=== PATIENT | female | born 1980 | race Caucasian/White ===

== ENCOUNTER 2016-10-21 19:06 | Emergency (ER) | payer BC ==
[2016-10-21 19:28] VITALS: BP 112/70
--- NOTE | 2016-10-21 20:22 | UC ---
Respiratory Complaint HPI - HPI Summary HPI Summary: The patient comes in today for: 1. Sore throat, headache, cough, sinus congestion, fever?, otalgia: Onset: 3 days ago. Palliative/Provocative: Nothing makes her symptoms better or worse. Quality: throat: scratchy. Headache: Frontal sinus Region: Throat, frontal sinus. Severity: 9/10 though she looks more like 5/10 Time: Constant. Associated symptoms: Rhinitis: Yellow. Upper tooth pain: None. Vomiting: None. Diarrhea: None. Abdominal pain: None. Chest pain: None. Dyspnea: Present, but no wheezing. Cough: yellow. * - History of Current Complaint Chief Complaint: UCGeneralIllness Stated Complaint: SINUSES Time Seen by Provider: 10/21/16 20:17 Hx Obtained From: Patient Hx Last Menstrual Period: HYSTERECTOMY 2007 - Allergies/Home Medications Allergies/Adverse Reactions: Allergies Allergy/AdvReac Type Severity Reaction Status Date / Time No Known Allergies Allergy Verified 10/21/16 19:28 Home Medications: Home Medications Pseudoephedrine TAB* [Sudafed TAB*] 60 mg PO Q6H PRN 10/21/16 [History Confirmed 10/21/16] predniSONE TAB* [Deltasone TAB*] 20 mg PO SEE INSTRUCTIONS 10/21/16 [History Confirmed 10/21/16] PMH/Surg Hx/FS Hx/Imm Hx Previously Healthy: No - "Pinched nerve in the neck on prednisone." Endocrine History Of: Denies: Diabetes, Thyroid Disease, Hyperthyroidism, Hypothyroidism, Dyslipidemia Cardiovascular History Of: Denies: Cardiac Disorders, Hypertension, Pacemaker/ICD, Myocardial Infarction , Congestive Heart Failure, Atrial Fibrillation, Deep Vein Thrombosis, Bleeding Disorders Respiratory History Of: Denies: COPD, Asthma, Bronchitis, Pneumonia, Pulmonary Embolism GI/ History Of: Denies: Gastroesophageal Reflux, Ulcer, Gastrointestinal Bleed, Gall Bladder Disease, Kidney Stones, Diverticulitis, Renal Disease, Urosepsis Neurological History Of: Denies: TIA, CVA, Dementia, Seizures, Migraine Psychological History Of: Denies: Anxiety, Depression, Bipolar Disorder, Schizophrenia, Post Traumatic Stress Disorder Cancer History Of: Denies: Lung Cancer, Colorectal Cancer, Breast Cancer, Prostate Cancer, Cervical Cancer Other History Of: Negative For: HIV, Hepatitis B, Hepatitis C, Anticoagulant Therapy - Surgical History Surgical History: Yes Surgery Procedure, Year, and Place: Gastric bypass 2013. hysterectomy 2007. lumbar herniated disc repair. C SECTION 2002 - Family History Known Family History: Positive: Cardiac Disease, Hypertension, Diabetes - Social History Occupation: Employed Full-time Lives: With Family Alcohol Use: Rare Alcohol Amount: FEW DRINKS/YR Substance Use Type: None Smoking Status (MU): Never Smoked Tobacco Have You Smoked in the Last Year: No - Immunization History Most Recent Influenza Vaccination: 06/04/16 Most Recent Tetanus Shot: 2013 Most Recent Pneumonia Vaccination: NEVER Review of Systems Constitutional: Negative Skin: Negative Eyes: Negative ENT: Sore Throat, Ear Ache, Nasal Discharge Respiratory: Cough Cardiovascular: Palpitations Gastrointestinal: Negative Genitourinary: Negative All Other Systems Reviewed And Are Negative: Yes Physical Exam Triage Information Reviewed: Yes Appearance: No Pain Distress, Well-Nourished, Ill-Appearing - She has good eye contact, but is slow moving. She will smile from time to time. Vital Signs: Initial Vital Signs Temp 98.3 F 10/21/16 19:22 Pulse 77 10/21/16 19:22 Resp 20 10/21/16 19:22 BP 112/70 10/21/16 19:22 Pulse Ox 100 10/21/16 19:22 Vital Signs Reviewed: Yes Eyes: Positive: Conjunctiva Clear. Negative: Discharge ENT: Positive: Hearing grossly normal, Other: - Sinus pressure elicits tenderness of the frontal and maxially sinuses.. Negative: Pharyngeal erythema , Nasal congestion, Nasal drainage, TM bulging, TM dull, TM red, Tonsillar swelling, Tonsillar exudate Dental: Negative: Gross Decay/Caries @, Dental Fracture @ Neck: Positive: Supple, Nontender, No Lymphadenopathy. Negative: Nuchal Rigidity Respiratory: Positive: Lungs clear, No respiratory distress, No accessory muscle use. Negative: Crackles, Wheezing Cardiovascular: Positive: RRR, No Murmur Abdomen Description: Positive: Nontender, No Organomegaly, Soft. Negative: Distended, Guarding Musculoskeletal: Positive: Strength Intact, ROM Intact, No Edema Neurological: Positive: Alert, Muscle Tone Normal Psychological: Positive: Normal Response To Family, Age Appropriate Behavior, Consolable Skin: Negative: rashes, breakdown UC Diagnostic Evaluation - Laboratory O2 Sat by Pulse Oximetry: 100 Respiratory Course/Dx - Differential Dx/Diagnosis Differential Diagnosis/HQI/PQRI: Asthma, Bronchitis, Sinusitis Provider Diagnoses: Sinusitis. Bronchitis. pharyngitis Discharge - Discharge Plan Condition: Stable Disposition: HOME Patient Education Materials: Upper Respiratory Infection (ED) Forms: *Work Release Referrals: Jacqueline Singh [Physician Polymer Materials Consultant] - 1 Week (Please see your primary care provider in about a week to see how well you are doing. If you get worse, please be seen sooner.)
== END 2016-10-21 20:46 | disposition home or self-care (01) ==
LOC: UCCORT 19:06
DX: J32.9 Chronic sinusitis, unspecified (principal); J40 Bronchitis, not specified as acute or chronic; J02.9 Acute pharyngitis, unspecified
CPT/HCPCS: 99212; G0463

== ENCOUNTER 2017-09-01 08:23 | Emergency (ER) | payer BC ==
--- OUTSIDE RECORDS SUMMARY | 2017-09-01 08:32 | XMS REPORT ---
:1980 External Reference #:[id number] Author Organization [employer] Address [address] [address] Phone [phone] Care Team Providers Name Role Phone Temi Calderon MD Primary Care Physician Unavailable Payers Type Date Identification Numbers Payment Provider Subscriber Commercial Effective: Policy Number: BS Jody De Los Santos 2011 [id number] Expires: 2012 PayID: [id number] [address] [address] [place] [address] [employer]ig[employer] Part B Expires: 2017 Policy Number: BS Jody De Los Santos [id number] PayID: [id number] [address] [address] B[place] [address] [employer] Part B Policy Number: [id number] DUSTIN De Los Santos PayID: [id number] [address] [address] [place] [address] Problems Date Description Provider Status Onset: 05/25/2014 Sjogren's syndrome João Garcia M.D. Active Onset: 05/25/2014 Immunologic João Garcia M.D. 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 Fulton De Los Santos to M.DGoyo use a space heater at work as it helps improve discomfort and function related to Raynaud's Vitamin B 12 / Active Lozenges 2500mcg 1 times a Unknown 0000 day Vitamin D3 / Active Capsules 1000Unit 1 by mouth Unknown High Potency 0000 every day Amoxicillin // Active Capsules 500mg take 1 Unknown 0000 capsule by mouth every 8 hours until finished Omeprazole / Active Capsules DR 20mg take 1 Unknown 0000 capsule by mouth once daily Iron / Active Tablets 325(65Fe) 1 by mouth Unknown 0000 mg every day Bactrim DS 04/23/ Hx Tablets 800-160mg 10tab 1 tab by R30.0 Meseret 2016 s mouth twice Cotton, a day for 5 M.D. days, may stop after 3 days if symptoms resolved Nitro-bid 11/22/ Hx Ointment 2% 30gm apply small I73.00 Donato 2015 - amount to Kirstin 04/22/ webs of Suzy 2017 digits as needed for attack of Raynaud's Cetraxal 11/15/ Hx Solution 0.2% 1unit 1 drop 380.51 Giuseppe 2015 - s twice a day RAE James 11/22/ to right 2016 ear x 7 days Fluticasone 08/28/ Hx Suspension 50mcg/Act 16gm 2 sprays 466.0 Kellee Propionate 2011 - Varn, N.P. 09/11/ nostril 2012 daily until better Benzonatate 08/28/ Hx Capsules 200mg 30cap one by 466.0 Kellee 2011 - s mouth three Varn, N.P. 09/11/ times daily 2012 as needed for cough Doxycycline 08/03/ Hx Capsules 100mg 20cap one tablet 709.9 Leslie Hyclate 2011 - s twice daily Kyle, 08/28/ until gone M.D. 2011 Omeprazole / Hx Capsules DR 10mg 30cap 1 po qd Unknown 0000 - s 2013 Biotin / Hx Tablets 5000mcg Unknown 0000 - 2015 Krill Oil / Hx Capsules 1000mg daily Unknown 0000 - 2015 Restasis / Hx Emulsion 0.05% 6unit one drops Unknown 0000 - s both eyes 11/15/ twice a day 2014 Refresh Plus / Hx Solution 0.5% apply 1-2 Unknown 0000 drops as needed Ibuprofen 00/ Hx Tablets 800mg as needed Unknown 0000 Vital Signs Date Vital Result Comment 08/27/2017 Height 59.5 inches 4'11.50" Weight 147.00 lb Heart Rate 76 /min BP Systolic 114 mmHg BP Diastolic 78 mmHg Respiratory Rate 16 /min Body Temperature 97.8 F BMI (Body Mass Index) 29.2 kg/m2 04/23/2017 Height 59.5 inches 4'11.50" Weight 143.00 lb w/o shoes Heart Rate 70 /min reg BP Systolic Sitting 112 mmHg Rue, reg cuff BP Diastolic Sitting 74 mmHg Rue, reg cuff Respiratory Rate 16 /min Body Temperature 97.2 F tympanic Pain Level 0 O2 % BldC Oximetry 96 % on Ra BMI (Body Mass Index) 28.4 kg/m2 11/23/2015 Height 59.5 inches 4'11.50" Weight 128.25 lb Heart Rate 68 /min BP Systolic Sitting 104 mmHg BP Diastolic Sitting 62 mmHg Pain Level 0 BMI (Body Mass Index) 25.5 kg/m2 11/15/2014 Height 59.5 inches 4'11.50" Weight 136.00 lb BP Systolic Sitting 98 mmHg BP Diastolic Sitting 66 mmHg BMI (Body Mass Index) 27.0 kg/m2 06/08/2014 Height 59.5 inches 4'11.50" Weight 152.25 lb Heart Rate 80 /min BP Systolic Sitting 104 mmHg BP Diastolic Sitting 68 mmHg Pain Level 3 BMI (Body Mass Index) 30.2 kg/m2 05/25/2014 Height 59.5 inches 4'11.50" Weight 153.50 lb Heart Rate 60 /min BP Systolic Sitting 124 mmHg BP Diastolic Sitting 76 mmHg Pain Level 4 BMI (Body Mass Index) 30.5 kg/m2 02/16/2014 Height 59 inches 4'11" Weight 165.00 lb BMI (Body Mass Index) 33.3 kg/m2 08/28/2012 Height 59.5 inches 4'11.50" Heart Rate 88 /min BP Systolic Sitting 128 mmHg BP Diastolic Sitting 80 mmHg Body Temperature 98.7 F Results Test Date Test Result H/L Range Note Urine Culture And 04/23/2017 Urine Culture SEE RESULT BELOW 1 Sensitivities Ua Routine 04/23/2017 Ua Specific Reinbeck 1.020 Ua PH 6 Ua Color yellow Ua Appera clear Ua WBC + Ua Protein trace Ua Glucose normal Ua Ketones negative Ua Bilirubin negative Ua Urobilinogen normal Ua Nitrite negative Ua Occult Blood negative Nicole (Antinuclear 11/24/2015 Nicole (Anti-Nuclear AB) Reflexed to FA Negative Antibodies) Screen Laboratory test 11/24/2015 C Reactive Protein 1.56 mg/L < 5.00 2 finding Complement C3 82 mg/dL 75 - 175 3 Complement C4 20 mg/dL 14 - 40 4 Anti Dna (Double Stranded Dna) Negative Negative 5 Dena Screen Negative Negative 6 Erythrocyte Sed Rate 15 mm/Hr High 0-14 7 Phospholipid Igm AB <4.0 MPL 8 Nicole Hep-2 11/24/2015 Nicole Pattern Centromere Negative Nicole Titer 1:5120 <1:80 Nicole Reviewed By MD Ila Melchor 9 Beta 2 Glycoprotein I Abs 11/24/2015 Beta 2 Glycoprotein IgG <4.0 U/mL 10 Beta 2 Glycoprotein IgM 16.9 U/mL 11 Free Thyroxine Index 11/24/2015 Thyroxine Binding 1.1 TBI 0.8 - 1.3 (Fti),Serum Panel Capacity, S Thyroxine, Total, S 7.4 g/dL 4.5 - 11.7 Free Thyroxine Index 6.7 g/dL 4.8 - 12.7 12 Neutrophil Cytoplasmic AB 11/24/2015 C-Anca Negative Negative P Anca Negative Negative Anca Reviewed By MD Ila Melchor 13 CBC Auto Diff 05/27/2014 White Blood Count 6.0 10^3/uL 4.8-10.8 Red Blood Count 4.31 10^6/uL 4.0-5.4 Hemoglobin 13.8 g/dL 12.0-16.0 Hematocrit 39 % 35-47 Mean Corpuscular Volume 91 fL 80-97 Mean Corpuscular Hemoglobin 32 pg High 27-31 Mean Corpuscular HGB Conc 35 g/dL 31-36 Red Cell Distribution Width 12 % 10.5-15 Platelet Count 227 10^3/uL 150-450 Mean Platelet Volume 8 um3 7.4-10.4 Abs Neutrophils 3.6 10^3/uL 1.5-7.7 Abs Lymphocytes 1.9 10^3/uL 1.0-4.8 Abs Monocytes 0.4 10^3/uL 0-0.8 Abs Eosinophils 0.1 10^3/uL 0-0.6 Abs Basophils 0 10^3/uL 0-0.2 Abs Nucleated RBC 0.01 10^3/uL Granulocyte % 60.3 % 38-83 Lymphocyte % 31.5 % 25-47 Monocyte % 6.4 % 1-9 Eosinophil % 1.2 % 0-6 Basophil % 0.6 % 0-2 Nucleated Red Blood Cells % 0.2 Comp Metabolic Panel 05/27/2014 Sodium 138 mmol/L 133-145 Potassium 3.8 mmol/L 3.7-5.6 Chloride 103 mmol/L 101-111 Co2 Carbon Dioxide 30 mmol/L 22-32 Anion Gap 5 mmol/L 2-11 Glucose 84 mg/dL 70-100 Blood Urea Nitrogen 12 mg/dL 6-24 Creatinine 0.56 mg/dL 0.51-0.95 BUN/Creatinine Ratio 21.4 High 8-20 Calcium 8.9 mg/dL 8.6-10.3 Total Protein 6.9 g/dL 6.4-8.9 Albumin 4.4 g/dL 3.2-5.2 Globulin 2.5 g/dL 2-4 Albumin/Globulin Ratio 1.8 1-3 Total Bilirubin 0.60 mg/dL 0.2-1.0 Alkaline Phosphatase 44 U/L 34-104 Alt 10 U/L 7-52 Ast 12 U/L Low 13-39 Egfr Non- 124.7 >60 Egfr 160.3 >60 14 Laboratory test finding 05/27/2014 Dena Screen Negative Negative 15 Erythrocyte Sed Rate 25 mm/Hr High 0-14 Cyclic Citrullinated Pept IgG <15.6 U 16 Neutrophil Cytoplasmic AB 05/27/2014 C-Anca Negative Negative P Anca Negative Negative Anca Reviewed By MD Ila Melchor 17 C-Anca Negative Negative P Anca Negative Negative Anca Reviewed By MD Ila Melchor 18 Laboratory test finding 05/27/2014 Rheumatoid Factor 31 IU/mL <15 19 C Reactive Protein 3.97 mg/L < 5.00 20 Nicole (Anti-Nuclear AB) Screen Reflexed to FA Negative Anti Double Stranded Dna Negative Negative Uric Acid 5.9 mg/dL 2.3-6.6 Hla B27 05/27/2014 Hla B27 Negative 21 Hla B27 Interp See Comment 22 Hepatitis Acute Panel 05/27/2014 Hepatitis B Surface Nonreactive Nonreactive Antigen Hepatitis B Core IgM Nonreactive Nonreactive Hepatitis A AB IgM Nonreactive Nonreactive Hepatitis C Antibody Nonreactive Nonreactive Nicole Hep-2 05/27/2014 Nicole Pattern Centromere Negative Nicole Titer 1:5120 <1:80 Nicole Reviewed By MD Mike Loera <SEE NOTE> 23 Laboratory test finding 08/28/2012 Rapid Influenza A B Antigen (SEE NOTE) 24 1 SEE RESULT BELOW Name: ENEIDA DE LOS SANTOS : [address]: Bianca Saini NP Acct: [id number] Unit: [id number] AGE: 37 Location: [facility] Re04/23/17 SEX: F Status: REG REF SPEC: [id number] JEN: 04/23/17-1430 [facility] [address]: Bianca Saini NP REQ: [id number] RECD: 04/23/17 STATUS: COMP _ SOURCE: URINE SPDESC: ORDERED: Urine Culture COMMENTS: [id number] Urine Source: Random Procedure Result Reported Site Urine Culture Final 04/25/17- 0840 ML Organism 1 ESCHERICHIA COLI [place] Count >100,000 (Many) CFU/ML 1. ESCHERICHIA COLI M.I.C. RX --------- ------ Ampicillin <=2 S Cefazolin <=4 S Cefepime <=1 S Ceftriaxone <=1 S Ciprofloxacin <=0.25 S Gentamicin <=1 S Levofloxacin <=0.12 S Meropenem <=0.25 S Nitrofurantoin 32 S Tetracycline <=1 S Pipercillin/Tazobactam <=4 S Trimethoprim/Sulfamethoxazole <=20 S Amoxicillin/Clavulanic Acid <=2 S Aztreonam <=1 S Contact the Microbiology Department for any additional antibiotic reporting. * ML - MAIN LAB ([facility]) . END OF REPORT * ML=Testing performed at Main Lab DEPARTMENT OF PATHOLOGY, [address] [place] [address] Mike Hernandez M.D. Director [facility] # [id number] 2 Acute inflammation: >10.00 3 Test Performed by: [address] [address] Requisition Approver: Eduardo Anguiano II, M.D., Ph.D. 4 Test Performed by: [place] [address] Requisition Approver: Eduardo Anguiano II, M.D., Ph.D. 5 this week please 6 The above DENA screen is designed for the detection of antibodies to extractable nuclear antigen (DENA) in human serum. It is a combination test for the detection of antibodies to BANDER OPERATOR, Sm, SS-A (Ro), and SS-B (La) nuclear antigens. 7 this week please 8 REFERENCE VALUE <10.0 (Negative) Test Performed by: [place] [address] Requisition Approver: Eduardo Anguiano II, M.D., Ph.D. 9 Ila Melchor 10 REFERENCE VALUE <10.0 (Negative) 11 Interpretation: Positive (>=15.0) REFERENCE VALUE <10.0 (Negative) Test Performed by: [place] [address] Requisition Approver: Eduardo Anguiano II, M.D., Ph.D. 12 Test Performed by: [place] [address] Requisition Approver: Eduardo Anguiano II, M.D., Ph.D. 13 Ila Melchor 14 Because ethnic data is not always readily available, this report includes an eGFR for both -Americans and non- Americans. The National Kidney Disease Education Program (NKDEP) does not endorse the use of the MDRD equation for patients that are not between the ages of 18 and 70, are , have extremes of body size, muscle mass, or nutritional status, or are non- or non-. According to the National Kidney Foundation, irrespective of diagnosis, the stage of the disease is based on the level of kidney function: Stage Description GFR(mL/min/1.73 m(2)) 1 Kidney damage with normal or decreased GFR 90 2 Kidney damage with mild decrease in GFR 60-89 3 Moderate decrease in GFR 30-59 4 Severe decrease in GFR 15-29 5 Kidney failure <15 (or dialysis) 15 The above DENA screen is designed for the detection of antibodies to extractable nuclear antigen (DENA) in human serum. It is a combination test for the detection of antibodies to BANDER OPERATOR, Sm, SS-A (Ro), and SS-B (La) nuclear antigens. 16 -- REFERENCE VALUE -- <20.0 (Negative) Test Performed by: [place] [address] Requisition Approver: Michael Dumont III, M.D. 17 Ila Melchor 18 Ila Melchor 19 Test Performed by: [place] [address] Requisition Approver: Michael Dumont III, M.D. 20 Acute inflammation: >10.00 21 -- REFERENCE VALUE -- Not Applicable 22 RESULT: HLA-B27 antigen was not detected. Method: Flow Cytometry Performing Laboratory CLIA# [id number] Test Performed by: [place] [address] Requisition Approver: Michael Dumont III, M.D. 23 Mike Hernandez 24 RUN DATE: 08/28/12 [facility] LAB LIVE PAGE 1 RUN TIME: [address] [place] [address] Specimen Inquiry Name: ENEIDA DE LOS SANTOS : [address]: Kellee Correia Acct: [id number] Unit: [id number] AGE: 32 Location: [facility] Re08/28/12 SEX: F Status: REG REF SPEC: [id number] JEN: 08/28/12-[address] [facility] [address]: Kellee Correia REQ: [id number] RECD: 08/28/12 STATUS: COMP _ SOURCE: [facility]: ORDERED: Rapid Flu A B QUERIES: [employer] Number [id number] Procedure Result Verified Site Rapid Influenza A B Antigen Final 08/28/12- 1241 ML Influenza A Antigen Negative by Enzyme Immunoassay Influenza B Antigen Negative by Enzyme Immunoassay Cell culture testing can be performed to confirm negative test results and to assist in detecting other viruses that can produce similar clinical symptoms. Please notify Microbiology Lab if further testing is desired. END OF REPORT * ML=Testing performed at Main Lab DEPARTMENT OF PATHOLOGY, [address] [place] [address] Mike Hernandez M.D. Director [facility] Permit #[id number] Procedures Date CPT Code Description Status 10/20/2013 79401 EKG, Interpretation Only Completed 02/21/2013 01252 Polysomnography Sleep Staging 4+ Parameters W/Cpap Completed 02/02/2013 60029 Polysomnography Sleep Staging 4+ Parameters Completed Encounters Type Date Location Provider CPT E/M Dx Office Visit 04/23/2017 1:00p [facility] Internal Medicine KRISHAN Patel [address] R30.0 - [address] N39.0 Office Visit 11/23/2015 10:00a [facility]ology Services Donato Fulton [address]608 M35.01 Of [facility] Suzy I73.00 R53.83 R76.0 Office Visit 11/15/2014 9:30a [facility] Internal Medicine - Giuseppe James, RAE [address] 959.09 Office Visit 06/08/2014 1:20p Rheumatology Services João Garcia M.D. 64457 710.2 Of [facility] 795.79 Office Visit 05/25/2014 2:00p Rheumatology Services João Garcia M.D. 06930 710.2 Of [facility] 795.79 Office Visit 11/25/2012 1:08p Adama Galan, [address]10 786.09 [facility] Suzy 780.79 Office Visit 08/28/2012 10:20a [facility] Internal Medicine Kellee Correia, N.P. 14888 466.0 - [place] Plan of Care Future Appointment(s):09/18/2017 9:00 am - Jeffry Walton MD, FACS at [facility]09/09/2017 12:15 pm - MICHAELA Schuster at [facility]09/09/2017 12:15 pm - Jeffry Walton MD, FACS at [facility]08/27/2017 - Jeffry Walton MD, FACSR10.12 Left upper quadrant painComments:get records including labs from PCP office.Recommendations: Diagnostic [id number] Bariatric surgery status
--- OUTSIDE RECORDS SUMMARY | 2017-09-01 08:33 | XMS REPORT ---
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 Unavailable Payers Type Date Identification Numbers Payment Provider Subscriber Health Maintenance Policy Number: [facility] Eneida Garcia [facility] ([facility]) [id number] PayID: [id number] [address] [place] [phone] Medigap Part B Effective: 06/08/2011 Policy Number: [facility] Eneida Garcia [id number] Expires: 08/07/2017 PayID: [id number] [address] [id number] [address] [place] [phone] Workers Compensation Onset: 09/21/2014 Policy Number: State Mamie Garcia [id number] Insurance PayID: [id number] [address] [place] [address] Problems Date Description Provider Status Onset: 02/27/2017 Anxiety state Temi Calderon MD Active Onset: 05/22/2017 Keratoconjunctivitis sicca, in Temi Calderon MD Active Sjogren's syndrome Onset: 02/25/2012 Morbid obesity Alessandra Conklin, Resolved 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: 10/17/2016 Family History Date Family Member(s) Problem(s) Comments Father Obesity Father due to AAA () - age 40 Father Hypertension Mother Obesity Mother Hypercholesterolemia Mother Thyroid Disease First Brother Obesity Social History Type Date Description Comments Education Higest level completed, Bachelor's Degree Marital Status Single Lives With Daughter 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 [facility] Hand Dominance RIGHT-handed ETOH Use Rarely consumes alcohol Smoking Patient has never smoked Allergies, Adverse Reactions, Alerts Date Description Reaction Status Severity Comments 09/28/2014 NKDA active Medications Medication Date Status Form Strength Qnty SIG Indications Ordering Provider Omeprazole 08/[address] 20mg 14cap 1 by mouth R10.12 Manny s every day DO Chris Vitamin B-12 02/27 Active Tablets 1000mcg 1 by mouth D51.9 Kvng, every day MD Temi Ferrous Sulfate 02/27 Active Tablets 325mg 1 by mouth D50.9 Kvng, every day MD Temi Tylenol 8 Hour 02/04 Active Tablets ER 650mg 1 tabs Kvng Arthritis Pain twice MD Temi daily for arthritis pain Vitamin D-1000 09/28 Active Tablets 1000Unit 90tab 1 by mouth Manny, Maximum Strength /2014 s every day DO Chris Escitalopram 02/10 Hx Tablets 10mg 30tab 1 by mouth F41.1 Kvng, s every day MD Temi - 05/20 Duloxetine HCL 02/[address] 30mg 53cap 1 by mouth F41.9 Part s every day MD Temi - x 1 week 05/20 then increase dose to 2 po daily Prednisone 10/17 Hx Tablets 10mg 21tab 6 pills by M54.2 s mouth x 1 MD Temi - dose 10/23 today then decrease dose by 1 pill daily until gone. Tizanidine HCL 08/06 Hx Tablets 4mg 90tab take one M54.2 s tablet by MD Temi - mouth at 02/04 bedtime as needed for pain Meloxicam 08/06 Hx Tablets 7.5mg 30tab 1 by mouth M54.2 Kvng, s every day MD Temi - with food 02/04 x 2 weeks, then as needed Sertraline HCL 12/18 Hx Tablets 25mg 14tab 1 po daily F33.1 Bryant, s Chris - DO 08/06 Sertraline HCL 11/29 Hx Tablets 50mg 30tab 1/2 po Manny, s daily x 6 Mala Perez days, then DO 12/18 increase to 1 po Cyclobenzaprine 05/08 Hx Tablets 5mg 60tab 1/2-2 by 847.0 Digiovann HCL /2014 s mouth a, - every 8 Alessandra, 11/29 hours as 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 needed for pain Ciprodex 11/15 Hx Suspension 0.3-0.1% 1unit 5 drops s twice a - day x 10 12/06 days RIGHT /2016 ear Vitamin B-12 09/28 Hx Tablets 500mcg 2 by mouth Manny, every day Chris, - DO 11/13 Biotin 5000 09/28 Hx Capsules 5mg take 2 by Manny, mouth Chris, - every day DO 11/13 Amitriptyline HCL 09/28 Hx Tablets 10mg 60tab 1-2 po qhs 850.9 Manny, s Chris, - DO 10/19 Meclizine HCL 07/01 Hx Tablets 12.5mg 50tab 1-2 by Manny, s mouth Chris, - three DO 05/08 times a day as needed for dizziness Restasis Hx Emulsion 0.05% 1 drop Unknown / both eyes - twice a /2014 Alrex Hx Suspension 0.2% Unknown / - 05/08 Vitamin B-12 Hx Tablets Sub 2500mcg 2 by mouth Unknown / every day - 02/27 Biotin Hx Tablets 300mcg Unknown /0000 - 12/06 Medications Administered in Office Medication Date Status Form Strength Qnty SIG Indications Ordering Provider Depo Medrol 40 Administered Injection MG James Bran MD Depo Medrol 40 Administered Injection MG James Bran MD Immunizations CPT Code Status Date Vaccine Lot # [id number] Given 02/25/2012 Tdap (Adacel) Ages 7 And Above Only Vital Signs Date Vital Result Comment 08/21/2017 Body Temperature 97.6 F Weight 148.00 lb Heart Rate 72 /min BP Systolic 132 mmHg BP Diastolic 60 mmHg Respiratory Rate 18 /min Height 61 inches 5'1"02/04/17 BMI (Body Mass Index) 28.0 kg/m2 08/19/2017 Body Temperature 98.4 F Weight 147.00 lb Heart Rate 70 /min BP Systolic 126 mmHg BP Diastolic 70 mmHg Respiratory Rate 18 /min Height 61 inches 5'1"02/04/17 BMI (Body Mass Index) 27.8 kg/m2 08/05/2017 Weight 150.00 lb Heart Rate 76 /min BP Systolic 126 mmHg BP Diastolic 74 mmHg Respiratory Rate 14 /min Height 61 inches 5'1"02/04/17 BMI (Body Mass Index) 28.3 kg/m2 02/27/2017 Weight 142.00 lb Heart Rate 67 /min BP Systolic 118 mmHg BP Diastolic 78 mmHg Respiratory Rate 16 /min Height 61 inches 5'1"02/04/17 BMI (Body Mass Index) 26.8 kg/m2 02/04/2017 Weight 140.00 lb Heart Rate 68 /min BP Systolic 110 mmHg BP Diastolic 70 mmHg Respiratory Rate 18 /min Height 61 inches 5'1"02/04/17 BMI (Body Mass Index) 26.4 kg/m2 10/23/2016 Body Temperature 101.0 F Weight 141.00 lb Heart Rate 90 /min BP Systolic 126 mmHg BP Diastolic 82 mmHg Respiratory Rate 24 /min Height 61 inches 5'1" O2 % BldC Oximetry 99 % Ra BMI (Body Mass Index) 26.6 kg/m2 10/17/2016 Weight 137.00 lb Heart Rate 76 /min BP Systolic 122 mmHg BP Diastolic 70 mmHg Respiratory Rate 18 /min Height 59.25 inches 4'11.251 10/17/18 BMI (Body Mass Index) 27.4 kg/m2 08/06/2016 Weight 134.00 lb Heart Rate 76 /min BP Systolic 110 mmHg BP Diastolic 60 mmHg Respiratory Rate 18 /min Height 59.25 inches 4'11.25" BMI (Body Mass Index) 26.8 kg/m2 01/06/2016 Weight 128.00 lb Heart Rate 68 /min BP Systolic 98 mmHg BP Diastolic 66 mmHg Respiratory Rate 16 /min Height 59.25 inches 4'11.25" BMI (Body Mass Index) 25.6 kg/m2 12/19/2015 Body Temperature 97.8 F Weight 127.00 lb Heart Rate 70 /min BP Systolic 112 mmHg BP Diastolic 78 mmHg Respiratory Rate 18 /min Height 59.25 inches 4'11.25" O2 % BldC Oximetry 100 % BMI (Body Mass Index) 25.4 kg/m2 12/07/2015 Body Temperature 98.4 F Weight 128.00 lb Heart Rate 73 /min BP Systolic 110 mmHg BP Diastolic 72 mmHg Respiratory Rate 18 /min Height 59.25 inches 4'11.25" O2 % BldC Oximetry 99 % BMI (Body Mass Index) 25.6 kg/m2 11/14/2015 Weight 127.00 lb Heart Rate 68 /min BP Systolic 122 mmHg BP Diastolic 70 mmHg Respiratory Rate 18 /min Height 59.25 inches 4'11.25" BMI (Body Mass Index) 25.4 kg/m2 05/08/2015 Weight 134.00 lb Heart Rate 80 /min BP Systolic 118 mmHg BP Diastolic 68 mmHg Respiratory Rate 17 /min Height 59 inches 4'11" BMI (Body Mass Index) 27.1 kg/m2 10/19/2014 Weight 139.00 lb Heart Rate 60 /min BP Systolic 112 mmHg BP Diastolic 60 mmHg Respiratory Rate 18 /min Height 59 inches 4'11" BMI (Body Mass Index) 28.1 kg/m2 09/28/2014 Weight 145.00 lb Heart Rate 80 /min BP Systolic 114 mmHg BP Diastolic 64 mmHg Respiratory Rate 16 /min Height 59 inches 4'11" BMI (Body Mass Index) 29.3 kg/m2 07/01/2014 Body Temperature 98.1 F Weight 150.00 lb Heart Rate 76 /min Respiratory Rate 18 /min Height 59 inches 4'11" 05/12/2014 Weight 154.00 lb BP Systolic 120 mmHg BP Diastolic 60 mmHg Height 59 inches 4'11" 03/04/2013 Weight 213.00 lb Heart Rate 78 /min BP Systolic 134 mmHg BP Diastolic 74 mmHg Respiratory Rate 18 /min 11/05/2012 Weight 212.00 lb Heart Rate 88 /min BP Systolic 134 mmHg BP Diastolic 88 mmHg Respiratory Rate 18 /min Results Test Date Test Result H/L Range Note Laboratory test 08/21/2017 Urine Culture <pending> finding Laboratory test 08/19/2017 Urine Culture Microbiology res 1 finding <SEE NOTE> Laboratory test 08/19/2017 Cytology Fluid SEE NOTE 2 finding Specimen CBC With Auto Diff 08/19/2017 WBC 5.5 K/uL 4.1-11.0 RBC 4.49 M/uL 4.00-5.40 Hemoglobin 14.4 gm/dL 12.0-16.0 Hematocrit 41.5 % 36.0-47.0 MCV 92.5 fL 80.0-97.0 MCH 32.0 pg 27.0-32.0 MCHC 34.5 g/dL 32.0-36.0 RDW 12.8 % 11.5-14.5 PLT Count 194 K/ul 140-400 MPV 8.1 FL 7.1-10.7 Neutrophil 65.3 % 35.0-75.0 Lymphocyte 26.0 % 16.0-52.0 Monocyte 5.6 % 2.0-10.0 Eosinophil 2.3 % 0.0-5.0 Basophil 0.8 % 0.0-4.0 Abs Neutrophils 3.6 K/uL 2.1-8.0 Abs Lymphocytes 1.4 K/uL 0.8-5.5 Abs Monocytes 0.3 K/uL 0.1-1.0 Abs Eosinophils 0.1 K/uL 0.0-0.5 Abs Basophils 0.0 K/uL 0.0-0.3 Laboratory test finding 08/19/2017 Lipase 12 U/L 11-82 Hepatic Panel (LFT) 08/19/2017 Total Protein 6.5 g/dL 6.0-8.0 Albumin 4.4 g/dL 3.6-4.9 Total Bilirubin 0.7 mg/dL 0.1-1.3 Direct Bilirubin 0.1 mg/dL 0.0-0.4 Alkaline Phosphatase 44 U/L 24-140 Alt 8 U/L 3-42 Ast 11 U/L 8-42 Basic (BMP) 08/19/2017 Sodium 140 mmol/L 135-146 3 Potassium 4.2 mmol/L 3.5-5.2 Chloride# 104 mmol/L 97-110 4 Carbon Dioxide 31 mmol/L 24-34 Glucose 88 mg/dL 70-105 Creatinine 0.5 mg/dL 0.5-1.4 Calcium 8.9 mg/dL 8.5-10.2 Non Melissa Egfr >60 >60 5 Melissa Egfr >60 >60 6 Anion Gap 5 mmol/L Low 7-16 7 BUN 12 mg/dL 6-26 Laboratory test finding 08/19/2017 Vitamin B12 674 pg/mL 180-914 Laboratory test finding 02/20/2017 TSH 3.5 CBC With Auto Diff 11/14/2015 WBC 5.1 K/uL 4.1-11.0 RBC 4.38 M/uL 4.00-5.40 Hemoglobin 13.6 gm/dL 12.0-16.0 Hematocrit 40.4 % 36.0-47.0 MCV 92.3 fL 80.0-97.0 MCH 31.1 pg 27.0-32.0 MCHC 33.7 g/dL 32.0-36.0 RDW 13.3 % 11.5-14.5 PLT Count 216 K/ul 140-400 Neutrophil 65.7 % 35.0-75.0 Lymphocyte 25.9 % 16.0-52.0 Monocyte 6.1 % 2.0-10.0 Eosinophil 1.5 % 0.0-5.0 Basophil 0.8 % 0.0-4.0 Abs Neutrophils 3.3 K/uL 2.1-8.0 Abs Lymphocytes 1.3 K/uL 0.8-5.5 Abmon 0.3 K/uL 0.1-1.0 Abs Eosinophils 0.1 K/uL 0.0-0.5 Abs Basophils 0.0 K/uL 0.0-0.3 Comprehensive Metabolic (CMP) 11/14/2015 Sodium 140 mmol/L 134-142 Potassium 4.0 mmol/L 3.5-5.2 Chloride 103 mmol/L 97-109 Carbon Dioxide 33 mmol/L 24-34 Glucose 84 mg/dL 70-105 BUN 19 mg/dL 6-26 Creatinine 0.5 mg/dL 0.5-1.4 Calcium 8.8 mg/dL 8.5-10.2 Total Protein 6.7 g/dL 6.0-8.0 Albumin 4.2 g/dL 3.6-4.9 Globulin 2.5 g/dL 2.0-3.5 A/G Ratio 1.7 Ratio 1.0-2.2 Total Bilirubin 0.6 mg/dL 0.1-1.3 Alkaline Phosphatase 43 U/L 24-140 Alt 9 U/L 3-42 Ast 10 U/L 8-42 Anion Gap 8 mmol/L 6-14 Melissa Egfr >60 >60 8 Non Melissa Egfr >60 >60 9 Laboratory test finding 11/14/2015 Ferritin 45.5 ng/ml 11.0-306.0 Vitamin B12 >1500 pg/mL High 180-914 Vit D,25 Hydroxy 43 ng/mL 31-100 Esr 10 mm/hr 0-20 Jordan Screen Pos Neg 10 TSH 1.62 uIU/mL 0.35-4.94 Laboratory test finding 11/14/2015 Scleroderma Igg AB NEGATIVE INDEX (Neg ) 11 1 Microbiology results SOURCE Random urine FINAL RESULT 25,000 CFU/ML Mixed urogenital karlo consistent with contamination. Request fresh specimen if indicated. 2 [facility]. [address] [place] [id number] CYTOLOGY REPORT Source of Specimen(s): A: LBP Urine, Voided Clinical Diagnosis and History: R31.29 Gross Description LBP Urine, Voided: 80 cc clear yellow fluid. Final Diagnosis Specimen Adequacy Satisfactory Final Diagnosis VOIDED URINE: NEGATIVE FOR HIGH-GRADE UROTHELIAL CARCINOMA The specimen contains a few urothelial cells, some background squamous cells and acute inflammatory cells. As applicable, positive and negative controls for all immunohistochemical and/or special stains were reviewed and considered appropriate. Reported: 08/20/2017 14:55 Electronically Signed Out By Bolivar Bernardo MD [facility] Supervisor [place]: Cordelia SHI([facility]) [facility] ICD Code: R31.2 Unless otherwise specified, testing performed by [facility] [address] [address] 3 Updated reference range on new analyzer 4 Updated reference range on new analyzer 5 Concerning GFR Guidelines: Normal function or mild renal disease, if clinically at risk: >/=60 mL/min Moderately decreased: 30-59 Severely decreased: 15-29 Renal failure: <15 Glomerular Filtration Rate (GFR) is estimated based on the MDRD equation, which assumes a steady state for creatinine as recommended by the National Kidney Disease Education Program in conjunction with the National Institutes of Health and the National Kidney Foundation. Clinical conditions in which it may be necessary to measure GFR by using clearance methods include extremes of age and body size, severe malnutrition or obesity, diseases of skeletal muscle, paraplegia or quadriplegia, vegetarian diet, rapidly changing kidney function, and calculation of the dose of potentially toxic drugs that are excreted by the kidneys. 6 Concerning GFR Guidelines for Americans: Normal function or mild renal disease, if clinically at risk: >/=60 mL/min Moderately decreased: 30-59 Severely decreased: 15-29 Renal failure: <15 7 Updated reference range on new analyzer 8 Concerning GFR Guidelines for Americans: Normal function or mild renal disease, if clinically at risk: >/=60 mL/min Moderately decreased: 30-59 Severely decreased: 15-29 Renal failure: <15 9 Concerning GFR Guidelines: Normal function or mild renal disease, if clinically at risk: >/=60 mL/min Moderately decreased: 30-59 Severely decreased: 15-29 Renal failure: <15 Glomerular Filtration Rate (GFR) is estimated based on the MDRD equation, which assumes a steady state for creatinine as recommended by the National Kidney Disease Education Program in conjunction with the National Institutes of Health and the National Kidney Foundation. Clinical conditions in which it may be necessary to measure GFR by using clearance methods include extremes of age and body size, severe malnutrition or obesity, diseases of skeletal muscle, paraplegia or quadriplegia, vegetarian diet, rapidly changing kidney function, and calculation of the dose of potentially toxic drugs that are excreted by the kidneys. 10 Screen for JORDAN is positive. Please triage the lab within 5 days if you would like additional testing. 11 Unless otherwise specified, testing performed by [email or web address] [address] [place] [address] Procedures Date CPT Code Description Status Comment 08/05/2017 23002 Admin Of Inj (Therapeutic Completed Phrophylactic Or Diagnostic Subq Inj 08/05/2017 01330 Admin Of Inj (Therapeutic Completed Phrophylactic Or Diagnostic Subq Inj 10/23/2016 94024 Measure Blood Oxygen Level Single Completed Determination 10/17/2016 57645 X-Ray Spine Cervical, 6 Or More Completed Views 10/17/2016 49659 X-Ray Spine Cervical, 4 Or 5 Views Completed 12/19/2015 93299 Measure Blood Oxygen Level Single Completed Determination 12/19/2015 13978 Electrocardiogram Complete Completed 12/07/2015 05261 Measure Blood Oxygen Level Single Completed Determination 05/08/2015 85669 X-Ray Spine Cervical, 4 Or 5 Views Completed 05/08/2015 00987 Remove Impacted Cerumen Requiring Completed Instrumentation 09/28/2014 89412 Visual Screening Test Completed 09/28/2014 19631 Visual Screening Test Completed 02/25/2012 15340 Visual Screening Test Completed 02/25/2012 49326 Screening Hearing Test Completed 08/27/2010 56246 Colonoscopy Flexible Diagnostic Completed Dr. Bazzi - Normal Encounters Type Date Location Provider CPT E/M Dx Office Visit 08/19/2017 11:00a [facility] [address] R10.12 R31.29 Office Visit 08/05/2017 4:15p [facility] [address] M70.62 M70.61 M54.5 Office Visit 02/27/2017 4:15p [facility] [place] [address] F41.9 G47.33 D51.9 D50.9 Office Visit 02/04/2017 2:30p [facility] [address] F41.9 G47.00 Z98.84 I73.00 M70.60 Office Visit 10/23/2016 1:00p [facility] [place] [address] J06.9 Office Visit 10/17/2016 10:15a [facility] [address] M54.2 Office Visit 08/06/2016 2:30p [facility] [place] [address] M54.2 M54.12 Office Visit 01/06/2016 9:00a [facility] [place] [address] F33.1 H83.09 Office Visit 12/19/2015 1:00p [facility] [place] [address] R07.89 F33.1 Office Visit 12/07/2015 11:00a [facility] [place] [address] J01.90 F43.0 Office Visit 11/14/2015 1:45p [facility] [place] [address] I73.00 Z98.84 R53.83 K59.00 Office Visit 05/08/2015 2:45p [facility] [place] [address] 784.0 847.0 380.4 Office Visit 10/19/2014 2:30p [facility] [place] [address] 850.9 850.9 Office Visit 09/28/2014 2:30p [facility] [place] [address] 850.9 850.9 Plan of Care 08/21/2017 - Tangela Sanchez, PAR30.0 DysuriaComments:Will send urine for repeat culture todayWill also check affirm/g/cWith hematuria, consider referral to urologyFollow up:PrnR31.29 Other microscopic hematuriaComments:Plan as above
--- OUTSIDE RECORDS SUMMARY | 2017-09-01 08:33 | XMS REPORT ---
:1980 External Reference #:[id number] Author Organization [facility] Address [address] [address] Phone [phone] Care Team Providers Name Role Phone Temi Calderon MD Care Team Information [place] Unavailable Payers Type Date Identification Numbers Payment Provider Subscriber Health Maintenance Policy Number: [facility] Eneida Garcia [facility] ([facility]) [id number] PayID: [id number] [address] [place] [phone] Medigap Part B Effective: 06/08/2011 Policy Number: [facility] Eneida Garcia [id number] Expires: 08/07/2017 PayID: [id number] [address] [address] [address] [phone] Workers Compensation Onset: 09/21/2014 Policy Number: State Mamie Garcia [id number] Insurance PayID: [id number] [address] [place] [address] Problems Date Description Provider Status Onset: 02/27/2017 Anxiety state Temi Calderon MD Active Onset: 05/22/2017 Keratoconjunctivitis sicca, in Temi Calderon MD Active Sjogren's syndrome Onset: 02/25/2012 Morbid obesity Alessandra Conklin, Resolved 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: 10/17/2016 Family History Date Family Member(s) Problem(s) Comments Father Obesity Father due to AAA () - age 40 Father Hypertension Mother Obesity Mother Hypercholesterolemia Mother Thyroid Disease First Brother Obesity Social History Type Date Description Comments Education Higest level completed, Bachelor's Degree Marital Status Single Lives With Daughter 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[facility] [employer] Hand Dominance RIGHT-handed ETOH Use Rarely consumes [...] - every 8 Alessandra, 11/29 hours as 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 needed for pain Ciprodex 11/15 Hx Suspension [...] CPT Code Status Date Vaccine Lot # [id number] Given 02/25/2012 Tdap (Adacel) Ages 7 And Above Only Vital Signs Date Vital Result Comment 08/19/2017 Body Temperature 98.4 F Weight 147.00 [...] Test Result H/L Range Note Laboratory test 08/19/2017 Urine Culture <pending> finding Laboratory test 08/19/2017 Cytology Fluid <pending> finding Specimen -RL Laboratory test 08/19/2017 Lipase <pending> finding Laboratory test 08/19/2017 Vitamin B12 <pending> finding Laboratory test 02/20/2017 TSH 3.5 finding CBC With Auto Diff 11/14/2015 WBC 5.1 [...] 8 mmol/L 6-14 Melissa Egfr >60 >60 1 Non Melissa Egfr >60 >60 2 Laboratory test finding 11/14/2015 Ferritin 45.5 ng/ml 11.0-306.0 Vitamin B12 >1500 pg/mL High 180-914 Vit D,25 Hydroxy 43 ng/mL 31-100 Esr 10 mm/hr 0-20 Jordan Screen Pos Neg 3 TSH 1.62 uIU/mL 0.35-4.94 Laboratory test finding 11/14/2015 Scleroderma Igg AB NEGATIVE INDEX (Neg ) 4 1 Concerning GFR Guidelines for Americans: Normal function or mild renal disease, if clinically at risk: >/=60 mL/min Moderately decreased: 30-59 Severely decreased: 15-29 Renal failure: <15 2 Concerning GFR Guidelines: Normal function or mild [...] drugs that are excreted by the kidneys. 3 Screen for JORDAN is positive. Please triage the lab within 5 days if you would like additional testing. 4 Unless otherwise specified, testing performed by [facility] [place] [employer] [address] [place] [address] Procedures Date CPT Code Description Status Comment 08/05/2017 29517 Admin Of Inj (Therapeutic Completed Phrophylactic Or Diagnostic Subq Inj 08/05/2017 30343 Admin Of Inj (Therapeutic Completed Phrophylactic Or Diagnostic Subq Inj 10/23/2016 21437 Measure Blood Oxygen Level Single Completed Determination 10/17/2016 24433 X-Ray Spine Cervical, 6 Or More Completed Views 10/17/2016 55629 X-Ray Spine Cervical, 4 Or 5 Views Completed 12/19/2015 50033 Measure Blood Oxygen Level Single Completed Determination 12/19/2015 38807 Electrocardiogram Complete Completed 12/07/2015 43329 Measure Blood Oxygen Level Single Completed Determination 05/08/2015 80348 X-Ray Spine Cervical, 4 Or 5 Views Completed 05/08/2015 59407 Remove Impacted Cerumen Requiring Completed Instrumentation 09/28/2014 97231 Visual Screening Test Completed 09/28/2014 83474 Visual Screening Test Completed 02/25/2012 00579 Visual Screening Test Completed 02/25/2012 01769 Screening Hearing Test Completed 08/27/2010 36861 Colonoscopy Flexible Diagnostic Completed Dr. Bazzi - Vijay Encounters Type Date Location Provider CPT E/M Dx Office Visit 08/05/2017 4:15p [facility] [place] [address] M70.62 M70.61 M54.5 Office Visit 02/27/2017 4:15p [facility] [place] [address] F41.9 G47.33 D51.9 D50.9 Office Visit 02/04/2017 2:30p [facility] [place] [address] F41.9 G47.00 Z98.84 I73.00 M70.60 Office Visit 10/23/2016 1:00p [facility] [place] [address] J06.9 Office Visit 10/17/2016 10:15a [facility] [place] [address] M54.2 Office Visit 08/06/2016 2:30p [facility] [place] [address] M54.2 M54.12 Office Visit 01/06/2016 9:00a [facility] [place] [address] F33.1 H83.09 Office Visit 12/19/2015 1:00p [facility] [place] [address] R07.89 F33.1 Office Visit 12/07/2015 11:00a [facility] [place] [address] J01.90 F43.0 Office Visit 11/14/2015 1:45p [facility] [place] [address] I73.00 Z98.84 R53.83 K59.00 Office Visit 05/08/2015 2:45p [facility] [place] [address] 784.0 847.0 380.4 Office Visit 10/19/2014 2:30p [facility] [place] [address] 850.9 850.9 Office Visit 09/28/2014 2:30p [facility] [place] [address] 850.9 850.9 Plan of Care 08/19/2017 - Tangela Sanchez PAR10.12 LEFT upper quadrant painNew Medication: Omeprazole 20 mgNew Xrays:Ultrasound Abd LimitedComments:? relation to scar tissue, refluxWill try short course of omeprazoleWill check labs todayWill also check ultrasoundCall/to ER if symptoms worsen or persistFollow up:PrnR31.29 Other microscopic hematuriaComments:Will send urine for culture and cytology
--- OUTSIDE RECORDS SUMMARY | 2017-09-01 08:34 | XMS REPORT ---
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 Payers Type Date Identification Numbers Payment Provider Subscriber Health Maintenance Effective: Policy Number: BCBS Ppo Eneida Garcia [facility] [place] [place] 06/08/2011 [id number] PayID: [id number] [facility] [address] [place] [address] Workers Compensation Onset: 09/21/2014 Policy Number: [facility] Mamie Garcia [id number] Insurance PayID: [id number] [place] [address] Problems Date Description Provider Status Onset: 02/27/2017 Anxiety state Temi Calderon MD Active Onset: 05/22/2017 Keratoconjunctivitis sicca, in Temi Calderon MD Active Sjogren's syndrome Onset: 02/25/2012 Morbid obesity Digiovanna Alessandra, Resolved LABEL DRIER Resolved: 10/17/2016 Family History Date Family Member(s) Problem(s) Comments Father Obesity Father due to AAA () - age 40 Father Hypertension Mother Obesity Mother Hypercholesterolemia Mother Thyroid Disease First Brother Obesity Social History Type Date Description Comments Education Higest level completed, Bachelor's Degree Marital Status Single Lives With Daughter 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 [employer] Hand Dominance RIGHT-handed ETOH Use Rarely consumes alcohol Smoking Patient has never smoked Allergies, Adverse Reactions, Alerts Date Description Reaction Status Severity Comments 09/28/2014 NKDA active Medications Medication Date Status Form Strength Qnty SIG Indications Ordering Provider Vitamin B-12 02/27 Active Tablets 1000mcg 1 by mouth D51.9 Kvng, every day MD Temi Ferrous Sulfate 02/27 Active Tablets 325mg 1 by mouth D50.9 every day MD Temi Tylenol 8 Hour 02/04 Active Tablets ER 650mg 1 tabs Kvng Arthritis Pain /2016 twice MD Temi daily for arthritis pain Vitamin D-1000 09/28 Active Tablets 1000Unit 90tab 1 by mouth Manny, Maximum Strength /2014 s every day DO Chris Escitalopram 02/10 Hx Tablets 10mg 30tab 1 by mouth F41.1 Kvng Oxalate s every day MD Temi - 05/20 Duloxetine HCL 02/[address] 30mg 53cap 1 by mouth F41.9 Part s every day MD Temi - x 1 week 05/20 increase dose to 2 po daily Prednisone [...] Tablets 7.5mg 30tab 1 by mouth M54.2 s every day MD Temi - with food 02/04 x 2 weeks, then as needed Sertraline HCL 12/18 Hx Tablets 25mg 14tab 1 po daily F33.1 Manny, s Chris, - DO 08/06 Sertraline HCL 11/29 Hx Tablets 50mg 30tab 1/2 po Bryant, s daily x 6 Chris, - days, then DO 12/18 increase to 1 po Cyclobenzaprine 05/08 Hx Tablets 5mg 60tab 2-2 by 847.0 Digiovann HCL s mouth a, - every 8 Alessandra, 11/29 hours as needed for pain Ciprodex 11/15 Hx Suspension 0.3-0.1% 1unit 5 drops Unknown s twice a - day x 10 12/06 days RIGHT ear Vitamin B-12 09/28 Hx Tablets 500mcg 2 by mouth Manny, every day Chris, - DO 11/13 Biotin 5000 09/28 Hx Capsules 5mg take 2 by mouth Chris, - every day DO 11/13 Amitriptyline HCL 09/28 Hx Tablets 10mg 60tab 1-2 po qhs 850.9 Manny, s Chris, - DO 10/19 Meclizine HCL 07/01 Hx Tablets 12.5mg 50tab 1-2 by Manny, s mouth Chris, - three DO 05/08 times day as needed for dizziness Restasis Hx Emulsion 0.05% 1 drop Unknown / both eyes - twice a Alrex Hx Suspension 0.2% Unknown / - 05/08 Vitamin B-12 Hx Tablets Sub 2500mcg 2 by mouth Unknown / every day - 02/27 Biotin Hx Tablets 300mcg Unknown / - 12/06 Medications Administered in Office Medication Date Status Form Strength Qnty SIG Indications Ordering Provider Depo Medrol 40 Administered Injection MG James Bran MD Depo Medrol 40 Administered Injection MG James Bran MD Immunizations CPT Code Status Date Vaccine Lot # [id number] Given 02/25/2012 Tdap (Adacel) Ages 7 And Above Only Vital Signs Date Vital Result Comment 08/05/2017 Weight 150.00 lb Heart Rate 76 [...] Test Result H/L Range Note Laboratory test finding 02/20/2017 TSH 3.5 CBC [...] 43 ng/mL 31-100 Esr 10 mm/hr 0-20 Nicole Screen Pos Neg 3 TSH 1.62 uIU/mL [...] excreted by the kidneys. 3 Screen for NICOLE is positive. Please triage the lab within 5 days if you would like additional testing. 4 Unless otherwise specified, testing performed by [facility] [place] [address] [place] [id number] Procedures Date CPT Code Description Status Comment 10/23/2016 62210 Measure Blood Oxygen Level Single Completed Determination 10/17/2016 18703 X-Ray Spine Cervical, 6 Or More Completed Views 10/17/2016 70348 X-Ray Spine Cervical, 4 Or 5 Views Completed 12/19/2015 93714 Measure Blood Oxygen Level Single Completed Determination 12/19/2015 60568 Electrocardiogram Complete Completed 12/07/2015 01784 Measure Blood Oxygen Level Single Completed Determination 05/08/2015 60714 X-Ray Spine Cervical, 4 Or 5 Views Completed 05/08/2015 46246 Remove Impacted Cerumen Requiring Completed Instrumentation 09/28/2014 26510 Visual Screening Test Completed 09/28/2014 42192 Visual Screening Test Completed 02/25/2012 36880 Visual Screening Test Completed 02/25/2012 39707 Screening Hearing Test Completed 08/27/2010 73446 Colonoscopy Flexible Diagnostic Completed Dr. Bazzi - Normal Encounters Type Date Location Provider CPT E/M Dx Office Visit 02/27/2017 4:15p [facility] [place] [address] F41.9 G47.33 D51.9 D50.9 Office Visit 02/04/2017 2:30p [facility] [place] [address] F41.9 G47.00 Z98.84 I73.00 M70.60 Office Visit 10/23/2016 1:00p [facility] [place] [address] J06.9 Office Visit 10/17/2016 10:15a [facility] [place] [address] M54.2 Office Visit 08/06/2016 2:30p [facility] [place] [address] M54.2 M54.12 Office Visit 01/06/2016 9:00a [facility] [place] [address] F33.1 H83.09 Office Visit 12/19/2015 1:00p [facility] [place] [address] R07.89 F33.1 Office Visit 12/07/2015 11:00a [facility] [place] [address] J01.90 F43.0 Office Visit 11/14/2015 1:45p [facility] [place] [address] I73.00 Z98.84 R53.83 K59.00 Office Visit 05/08/2015 2:45p [facility] [place] [address] 784.0 847.0 380.4 Office Visit 10/19/2014 2:30p [facility] [place] [address] 850.9 850.9 Office Visit 09/28/2014 2:30p [facility] [place] [address] 850.9 850.9 Plan of Care 08/05/2017 - Joyce Bran, MDM70.62 Trochanteric bursitis, LEFT hipNew Orders:Physical TherapyComments:greater trochanteric bursitiswe injected your lateral hip with depomedrol steroid 20mg and 1% lidocaine today 1.5 ccthe numbness of the lidocaine will wear off over the next few hours, then the pain will return. It will take a few days for the steroid to help. Please use ice/ aleve as needed for pain. Please call for concerns such as severe pain, which could be steroid flare, or other concerns such asspreading redness, fever, other concerns. Referral to phys therapyFollow up:referal to phys therM70.61 Trochanteric bursitis, RIGHT hipNew Orders:Physical TherapyComments:greater trochanteric bursitiswe injected your lateral hip trochanteric bursa with 20mg depomedrol steroid and 1.5cc of 1% lidocaine todaythe numbness of the lidocaine will wear off over the next few hours, then the pain will return. It will take a few days for the steroid to help. Please use ice/aleveas needed for pain. Please call for concerns such as severe pain, which could be steroid flare, or other concerns such as spreading redness, fever, other concerns. referral to phys therFollow up:Followup:.M54.5 Low back painComments:Addendum, discussed with patient: Pt with some low back pain, reflexes slightly brisk. This pain is chronic. Treatment of the greater trochanteric bursitis with injections will help sort out which area is causing more discomfort and guide treatment at this time. If she is not responding to the injections then there may be more of a back pain component
[2017-09-01 08:35] VITALS: BP 103/64
[2017-09-01] MEDS ORDERED: Lidocaine 2% PF * 5 ML VIAL INJ ONE (08:37)
--- NOTE | 2017-09-01 09:36 | UC ---
Laceration HPI - HPI Summary HPI Summary: pt stabbed hard into the lateral aspect of her 2nd metacarpal today while cutting cables with a kitchen knife this morming at 8am. per pt knife had only been used on dry bread, if on anything at all, prior to cutting her hand. - History Of Current Complaint Chief Complaint: UCLaceration Stated Complaint: LFT HAND LAC Time Seen by Provider: 09/01/17 08:36 Hx Obtained From: Patient Hx Last Menstrual Period: 2007 Laceration Location: Hand Mechanism Of Injury: Sharp Trauma Onset/Duration: Sudden Onset Severity: Moderate Pain Intensity: 5 Pain Scale Used: 0-10 Numeric Aggravating Factors: Position - Allergies/Home Medications Allergies/Adverse Reactions: Allergies Allergy/AdvReac Type Severity Reaction Status Date / Time No Known Allergies Allergy Verified 09/01/17 08:35 Home Medications: Home Medications Ferrous Sulfate TAB* 325 mg PO DAILY 09/01/17 [History Confirmed 09/01/17] Methylcobalamin [B-12] 1,000 mcg PO DAILY 09/01/17 [History Confirmed 09/01/17] PMH/Surg Hx/FS Hx/Imm Hx Previously Healthy: Yes Other History Of: Negative For: HIV, Hepatitis B, Hepatitis C, Anticoagulant Therapy - Surgical History Surgical History: Yes Surgery Procedure, Year, and Place: Gastric bypass 2013. hysterectomy 2007. lumbar herniated disc repair. C SECTION 2002 - Family History Known Family History: Positive: Cardiac Disease, Hypertension, Diabetes - Social History Lives: With Family Alcohol Use: Rare Alcohol Amount: FEW DRINKS/YR Substance Use Type: None Smoking Status (MU): Never Smoked Tobacco Have You Smoked in the Last Year: No - Immunization History Most Recent Influenza Vaccination: 06/04/16 Most Recent Tetanus Shot: 2013 Most Recent Pneumonia Vaccination: NEVER Review of Systems Constitutional: Negative Skin: Other - hand lac ENT: Negative Respiratory: Negative Cardiovascular: Negative Gastrointestinal: Negative Neurological: Negative Psychological: Negative All Other Systems Reviewed And Are Negative: Yes Physical Exam Triage Information Reviewed: Yes Appearance: Well-Appearing, No Pain Distress, Well-Nourished Vital Signs: Initial Vital Signs Temp 98.4 F 09/01/17 08:26 Pulse 62 09/01/17 08:26 Resp 16 09/01/17 08:26 BP 103/64 09/01/17 08:26 Pulse Ox 100 09/01/17 08:26 Vital Signs Reviewed: Yes Eyes: Positive: Conjunctiva Clear. Negative: Discharge ENT: Positive: Hearing grossly normal. Negative: Muffled voice, Hoarse voice Neck: Positive: Supple Respiratory: Positive: Lungs clear, Normal breath sounds, No respiratory distress Cardiovascular: Positive: RRR, No Murmur Musculoskeletal Exam: Normal Neurological: Positive: Alert, Muscle Tone Normal Psychological: Positive: Normal Response To Family, Age Appropriate Behavior Skin: Positive: Other - 1.5cm lac on lateral aspect of dis 2nd metacarpal Laceration Repair - Laceration Repair 1 Description: Linear Laceration Size After Repair: Length (cm) - 1.5 Modified For Repair: No Anesthesia Used: 2.0% Lido Cleansing Completed Via Routine Prep: Yes Irrigation With Pressure Irrigation Device: Yes Closure Material: Sutures Closure Method: Single Layer Suture Of: Skin Suture Type: Prolene - 3 5-0 prolene Laceration Course/Dx - Differential Dx - Laceration/Wound Differental Diagnoses: Fracture, Laceration, Puncture Wound Provider Diagnoses: hand lac Discharge - Discharge Plan Condition: Stable Disposition: HOME Patient Education Materials: Laceration (ED) Referrals: Temi Calderon MD [Primary Care Provider] - If Needed Additional Instructions: Follow up her in 10-12 days for suture removal.
--- NOTE | 2017-09-01 09:56 | RAD ---
INDICATION: Left second finger injury. TECHNIQUE: 3 views of the left second finger were obtained. FINDINGS: There is soft tissue swelling and a soft tissue defect present at the level of the proximal interphalangeal joint. No fracture or radiopaque foreign body is seen. Joint spaces appear maintained. IMPRESSION: SOFT TISSUE INJURY.
== END 2017-09-01 09:26 | disposition home or self-care (01) ==
LOC: UCCORT 08:23
DX: S61.412A Laceration without foreign body of left hand, initial encounter (principal); W26.0XXA Contact with knife, initial encounter; Y92.9 Unspecified place or not applicable
CPT/HCPCS: 12001; 73140; 99211; G0463

== ENCOUNTER 2017-09-09 09:43 | Day surgery (SDC) | payer BC ==
[~2017-09-09 09:43] MED LIST: Buffered Lidocaine 0.9% SYRIN* 5 ML/SYR SYRINGE INTRADERM ONE; Dexamethasone IV* 4 MG/ML 1 ML (4 MG) IV SLOW PU ONE; Famotidine IV* 10 MG/ML 2 ML (20 mg) IV ONE
[2017-09-09] MEDS ORDERED: Dexamethasone IV* 4 MG/ML 1 ML (4 MG) ONE (10:13)
[2017-09-09] MEDS ORDERED: Famotidine IV* 10 MG/ML 2 ML (20 mg) ONE (10:14)
[2017-09-09] MEDS ORDERED: Buffered Lidocaine 0.9% SYRIN* 5 ML/SYR SYRINGE ONE (10:14)
[2017-09-09] MEDS ORDERED: Bupivacaine 0.25% SDV* 30 ML ONE (12:48)
[2017-09-09] MEDS ORDERED: Midazolam* 1 MG/ML 2 ML VIAL (2 MG) ONE (13:05)
[2017-09-09] MEDS ORDERED: fentaNYL* 50 MCG/ML 2 ML VIAL (100 MCG VIAL) ONE ×2 (13:05→14:47)
[2017-09-09] MEDS ORDERED: Lidocaine 2% PF * 5 ML VIAL ONE (13:11)
[2017-09-09] MEDS ORDERED: Propofol* 10 MG/ML 20 ML BTL IV PUSH ONE (13:11)
[2017-09-09] MEDS ORDERED: Mivacurium Chloride* 20 MG/10 ML VIAL IV ONE (13:12)
[2017-09-09] MEDS ORDERED: Ketorolac INJ* 30 MG/ML 1 ML VIAL ONE (13:31)
[2017-09-09] MEDS ORDERED: fentaNYL* 50 MCG/ML 2 ML VIAL (100 MCG VIAL) IV PRN (13:37)
[2017-09-09] MEDS ORDERED: HYDROcodone/ACETAMIN 5-325 MG* 1 TAB PO PRN (13:37)
[2017-09-09] MEDS ORDERED: oxyCODONE/Acetamin 5/325 MG* TAB PO PRN (13:37)
[2017-09-09] MEDS ORDERED: PROCHLORPERAZINE INJ 5 MG/ML 2 ML VIAL IV PRN (13:37)
[2017-09-09] MEDS ORDERED: Ondansetron INJ* 2 MG/ML VIAL ONE (14:02)
[2017-09-09 15:06] VITALS: BP 100/60
[2017-09-09] MEDS ORDERED: oxyCODONE/Acetamin 5/325 MG* TAB ONE (15:30)
--- NOTE | 2017-09-10 07:32 | OP ---
DATE OF OPERATION: 09/09/17 [facility] DATE OF : 82 SURGEON: Jeffry Walton MD. SALES DEVELOPMENT REPRESENTATIVE: MICHAELA Schuster. ANESTHESIOLOGIST: Ericka Berg MD. ANESTHESIA: General endotracheal. PRE-OP DIAGNOSIS: Left upper quadrant abdominal pain. POST-OP DIAGNOSIS: 1. Left upper quadrant abdominal pain. 2. Intraperitoneal adhesions. 3. Right ovarian cyst. OPERATIVE PROCEDURE: Diagnostic laparoscopy. ESTIMATED BLOOD LOSS: Minimal. IV FLUIDS: Crystalloids. SPECIMEN: None. DRAINS: None. COMPLICATIONS: None. COUNTS: Instrument, needle, and sponge counts correct. DESCRIPTION OF PROCEDURE: The patient was brought to the operating room, place on the operating table supine. Sequential compression devices were placed in both lower extremities. General anesthesia was administered. Abdomen was prepped and draped in the usual sterile fashion. Time-out was performed. Local anesthetic was infiltrated into the skin and soft tissue prior to making incisions. Entry into the abdomen was through a transumbilical incision using an open technique. After accessing the peritoneal cavity, a 5 mm trocar was placed and carbon dioxide was insufflated to a pressure of 15 mmHg. Under direct visualization, 5 mm trocars were placed in the right upper quadrant and left lower quadrant. Inspection revealed that there were numerous adhesions above the liver. There was no acute inflammation of the liver noted. There was a single band adhesion of the Jules limb to the left upper quadrant abdominal wall and this was lysed. Small bowel was run from the gastrojejunostomy distally and the bowel appeared to be normal. At the jejunojejunostomy, the bowel was run proximally to the ligament of Treitz and this was normal, without any evidence of dilation or inflammation. The bowel was then run distally from the jejunojejunostomy to the ileocecal valve and this all appeared normal except for an adhesion of small bowel to what appeared to be a 6 cm right ovarian cyst. This appeared to be a simple serous cyst. Colon appeared to be normal throughout the ascending, transverse, descending, and sigmoid colons. There were adhesions of the sigmoid colon to the left side of the pelvis and visualized portion of the fimbria of the tube and portions of the left ovary were seen and appeared to be normal. At this point, the operation was concluded. Ports removed, carbon dioxide was released. The umbilical site was closed with 0 Polysorb to approximate the fascia. Skin incisions were all closed with 4-0 Monocryl. Steri-Strips were applied. The patient tolerated the procedure and was extubated uneventfully and transferred to Recovery in stable condition. [id number]/[facility] [place] #: [id number] [place]
== END 2017-09-09 15:43 | disposition home or self-care (01) ==
LOC: OR 09:43
PROVIDERS: ATTEND Surgery
DX: R10.12 Left upper quadrant pain (principal); K66.0 Peritoneal adhesions (postprocedural) (postinfection); Z98.84 Bariatric surgery status; N83.201 Unspecified ovarian cyst, right side; E78.5 Hyperlipidemia, unspecified; G62.9 Polyneuropathy, unspecified; K21.9 Gastro-esophageal reflux disease without esophagitis; M35.00 Sjogren syndrome, unspecified
CPT/HCPCS: A9270-GY; J1100; J1885; J2250; J2405; J2704; J3010

== ENCOUNTER 2017-11-03 10:48 | Emergency (ER) | payer BC ==
--- OUTSIDE RECORDS SUMMARY | 2017-11-03 11:37 | XMS REPORT ---
:1980 External Reference #:[id number] Author Organization [employer] Address [address] [address] Phone [phone] Care Team Providers Name Role Phone Temi Calderon MD Primary Care Physician Unavailable Payers Type Date Identification Numbers Payment Provider Subscriber Commercial Effective: Policy Number: BS Jody De Los Santos 2011 [id number] Expires: 2012 PayID: [id number] [address] [address] [place] [address] [employer] Part B Expires: 2017 Policy Number: BS Jody De Los Santos [id number] PayID: [id number] [address] [address] [place] [address] [employer] Part B Policy Number: [id number] DUSTIN De Los Santos PayID: [id number] [facility] [address] [address] Problems Date Description Provider Status Onset: 05/25/2014 Sjogren's syndrome João Garcia M.D. Active Onset: 05/25/2014 Immunologic João Garcia M.D. 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 weekly Plaquenil 09/02/ Active Tablets 200mg 60tab 1 by mouth M35.9 2016 s every day Kirstin, for 1 week M.D. then 2 by mouth daily ongoing Nitro-bid 09/02/ Active Ointment 2% 30uni apply small M35.9 2016 ts amount to vineet Fulton of Suzy digits as needed for attack of raynaud's Heat Therapy 11/22/ Active Misc 1unit Please M35.01 2015 s allow Jose Fulton to M.DGoyo use a space heater at work as it helps improve discomfort and function related to Raynaud's Vitamin B 12 / Active Lozenges 2500mcg 1 times a Unknown 0000 day Omeprazole / Active Capsules DR 20mg take 1 Unknown 0000 capsule by mouth once daily Iron / Active Tablets 325(65Fe) 1 by mouth Unknown 0000 mg every day Bactrim DS 04/23/ Hx Tablets 800-160mg 10tab 1 tab by R30.0 Meseret 2017 s mouth twice Cotton, a day for 5 M.D. days, may stop after 3 days if symptoms resolved Nitro-bid 11/22/ Hx Ointment 2% 30gm apply small I73.00 2015 - amount to Kirstin 04/22/ vineet of Suzy 2017 digits as needed for attack of Raynaud's Cetraxal 11/15/ Hx Solution 0.2% 1unit 1 drop 380.51 Giuseppe 2015 - s twice a day RAE James 11/22/ to right 2016 ear x 7 days Fluticasone 08/28/ Hx Suspension 50mcg/Act 16gm 2 sprays 466.0 Kellee Propionate 2011 - each Varn, N.P. 09/11/ nostril 2012 daily until better Benzonatate 08/28/ Hx Capsules 200mg 30cap one by 466.0 Kellee 2011 - s mouth three Varn, N.P. 09/11/ times daily 2012 as needed for cough Doxycycline 08/03/ Hx Capsules 100mg 20cap one tablet 709.9 Leslie Hyclate 2011 - s twice daily Kyle, until gone M.D. 2011 Omeprazole / Hx Capsules DR 10mg 30cap 1 po qd Unknown 0000 - s 2013 Biotin / Hx Tablets 5000mcg Unknown - 2015 Krill Oil / Hx Capsules 1000mg daily Unknown 0000 - 2015 Restasis / Hx Emulsion 0.05% 6unit one drops Unknown 0000 - s both eyes 11/15/ twice a day 2014 Refresh Plus / Hx Solution 0.5% apply 1-2 Unknown 0000 drops as needed Vitamin D3 / Hx Capsules 1000Unit 1 by mouth Unknown High Potency 0000 - every day 2016 Ibuprofen / Hx Tablets 800mg as needed Unknown 0000 Amoxicillin / Hx Capsules 500mg take 1 Unknown 0000 - capsule by 09/02/ mouth every 2016 8 hours until finished Vital Signs Date Vital Result Comment 10/07/2017 Height 59.5 inches 4'11.50" Weight 150.00 lb Heart Rate 81 /min BP Systolic Sitting 135 mmHg BP Diastolic Sitting 85 mmHg Respiratory Rate 14 /min Pain Level 6 BMI (Body Mass Index) 29.8 kg/m2 10/07/2017 Height 59.5 inches 4'11.50" 09/18/2017 Heart Rate 78 /min Respiratory Rate 16 /min Body Temperature 97.8 F 09/02/2017 Height 59.5 inches 4'11.50" Weight 151.00 lb Heart Rate 71 /min BP Systolic Sitting 114 mmHg BP Diastolic Sitting 73 mmHg Respiratory Rate 14 /min Pain Level 6 BMI (Body Mass Index) 30.0 kg/m2 08/27/2017 Height 59.5 inches 4'11.50" Weight 147.00 [...] Test Date Test Result H/L Range Note Bariatric Panel Post Op 09/05/2017 Ferritin 36.3 ng/mL 11-307 Vitamin B12 354 pg/mL 180-914 1 Folic Acid (Folate) 19.09 ng/mL >3.99 Vitamin D Total 25(Oh) 16.1 ng/mL Low 20-50 Vitamin B1 (Whole Blood) 150 nmol/L 70-180 2 Vitamin E Level 9.0 mg/L 5.5 - 17.0 3 Comp Metabolic Panel 09/05/2017 Sodium 139 mmol/L 133-145 Potassium 4.0 mmol/L 3.5-5.0 Chloride 105 mmol/L 101-111 Co2 Carbon Dioxide 29 mmol/L 22-32 Anion Gap 5 mmol/L 2-11 Glucose 85 mg/dL 70-100 Blood Urea Nitrogen 11 mg/dL 6-24 Creatinine 0.50 mg/dL Low 0.51-0.95 BUN/Creatinine Ratio 22.0 High 8-20 Calcium 8.9 mg/dL 8.6-10.3 Total Protein 6.4 g/dL 6.4-8.9 Albumin 4.0 g/dL 3.2-5.2 Globulin 2.4 g/dL 2-4 Albumin/Globulin Ratio 1.7 1-3 Total Bilirubin 0.80 mg/dL 0.2-1.0 Alkaline Phosphatase 39 U/L 34-104 Alt 8 U/L 7-52 Ast 10 U/L Low 13-39 Egfr Non- 139.6 >60 Egfr 179.5 >60 4 CBC Auto Diff 09/05/2017 White Blood Count 3.8 10^3/uL 3.5-10.8 Red Blood Count 4.44 10^6/uL 4.0-5.4 Hemoglobin 14.1 g/dL 12.0-16.0 Hematocrit 40 % 35-47 Mean Corpuscular Volume 91 fL 80-97 Mean Corpuscular Hemoglobin 32 pg High 27-31 Mean Corpuscular HGB Conc 35 g/dL 31-36 Red Cell Distribution Width 13 % 10.5-15 Platelet Count 187 10^3/uL 150-450 Mean Platelet Volume 8 um3 7.4-10.4 Abs Neutrophils 2.0 10^3/uL 1.5-7.7 Abs Lymphocytes 1.4 10^3/uL 1.0-4.8 Abs Monocytes 0.2 10^3/uL 0-0.8 Abs Eosinophils 0.2 10^3/uL 0-0.6 Abs Basophils 0 10^3/uL 0-0.2 Abs Nucleated RBC 0 10^3/uL Granulocyte % 51.6 % 38-83 Lymphocyte % 37.4 % 25-47 Monocyte % 6.4 % 1-9 Eosinophil % 4.0 % 0-6 Basophil % 0.6 % 0-2 Nucleated Red Blood Cells % 0.1 Iron & Iron Binding Capacity 09/05/2017 Iron 123 g/dL 50-212 Unsaturated Iron Binding 161 g/dL Total Iron Binding Capacity 284 g/dL 250-450 % Iron Saturation 43 % 15-55 Urinalysis Profile 09/03/2017 Urine Color Yellow 5 Urine Appearance Clear 5 Urine Specific [place] 1.015 1.010-1.030 5 Urine pH 6.0 5-9 5 Urine Urobilinogen Positive Negative 5 Urine Ketones Negative Negative 5 Urine Protein Negative Negative 5 Urine Leukocytes Negative Negative 5 Urine Blood Negative Negative 5 * * Negative 5, 6 Urine Nitrite Negative Negative 5 Urine Bilirubin Negative Negative 5 Urine Glucose Negative Negative 5 Laboratory test 09/03/2017 Erythrocyte Sed Rate 29 mm/Hr High 0-14 finding Nuclear AB (Nicole) By 09/03/2017 Nuclear Ab (Nicole) by Positive 1:1280 7 Ifa Igg Ifa, IgG Nicole Titer: 1:1280 Nicole Pattern: Centromere 8 Anca AB Ser If 09/03/2017 C-Anca Negative Negative P-Anca Negative Negative 9 Laboratory test finding 09/03/2017 Glomerular Basement Membrane <0.2 U 10 Urinalysis Profile 09/03/2017 Urine Color Yellow Urine Appearance Clear Urine Specific [place] 1.011 1.010-1.030 Urine pH 6.0 5-9 Urine Urobilinogen Negative Negative Urine Ketones Negative Negative Urine Protein Negative Negative Urine Leukocytes Negative Negative Urine Blood 1+ Negative * * Negative 11 Urine Nitrite Negative Negative Urine Bilirubin Negative Negative Urine Glucose Negative Negative Urine White Blood Cell Trace(0-5/hpf) Absent Urine Red Blood Cell Trace(0-2/hpf) Absent Urine Bacteria Absent Absent Urine Squamous Epithelial Cell Present Absent Dena Igg AB Reflex 09/03/2017 SS-A/Ro Antibody <0.2 U 12 SS-B/La Antibody <0.2 U 13 Sm (Goodwin) IgG Antibody <0.2 U 14 U1-nRNP Antibody 0.2 U 15 Scl-70 (Scleroderma) Antibody <0.2 U 16 Silvina-1 Antibody <0.2 U 17 Laboratory test finding 09/03/2017 Rheumatoid Factor <15 IU/mL <15 18 Cyclic Citrullinated Pep Igg <15.6 U 19 Cardiolipin Igg/Igm 09/03/2017 Phospholipid Ab IgM, S < 9.4 MPL 20 Phospholipid Ab IgG < 9.4 GPL 21 Laboratory test finding 09/03/2017 TSH (Thyroid Stim 3.05 mcIU/mL 0.34- 5.60 Horm) Laboratory test finding 09/03/2017 C Reactive Protein 7.40 mg/L High < 5.00 22 Complement C3 95 mg/dL 75 - 175 23 Complement C4 21 mg/dL 14 - 40 24 Anti Double Stranded Dna AB <12.3 IU/mL 25 Immunoglobulin G (Igg) 963 mg/dL 767 - 1590 26 Comp Metabolic Panel 09/03/2017 Sodium 139 mmol/L 133-145 Potassium 3.8 mmol/L 3.5-5.0 Chloride 104 mmol/L 101-111 Co2 Carbon Dioxide 30 mmol/L 22-32 Anion Gap 5 mmol/L 2-11 Glucose 78 mg/dL 70-100 Blood Urea Nitrogen 12 mg/dL 6-24 Creatinine 0.52 mg/dL 0.51-0.95 BUN/Creatinine Ratio 23.1 High 8-20 Calcium 8.6 mg/dL 8.6-10.3 Total Protein 6.6 g/dL 6.4-8.9 Albumin 4.1 g/dL 3.2-5.2 Globulin 2.5 g/dL 2-4 Albumin/Globulin Ratio 1.6 1-3 Total Bilirubin 0.60 mg/dL 0.2-1.0 Alkaline Phosphatase 40 U/L 34-104 Alt 7 U/L 7-52 Ast 11 U/L Low 13-39 Egfr Non- 133.4 >60 Egfr 171.6 >60 27 CBC Auto Diff 09/03/2017 White Blood Count 4.8 10^3/uL 3.5-10.8 Red Blood Count 4.40 10^6/uL 4.0-5.4 Hemoglobin 13.9 g/dL 12.0-16.0 Hematocrit 40 % 35-47 Mean Corpuscular Volume 92 fL 80-97 Mean Corpuscular Hemoglobin 32 pg High 27-31 Mean Corpuscular HGB Conc 35 g/dL 31-36 Red Cell Distribution Width 13 % 10.5-15 Platelet Count 202 10^3/uL 150-450 Mean Platelet Volume 8 um3 7.4-10.4 Abs Neutrophils 3.0 10^3/uL 1.5-7.7 Abs Lymphocytes 1.3 10^3/uL 1.0-4.8 Abs Monocytes 0.3 10^3/uL 0-0.8 Abs Eosinophils 0.1 10^3/uL 0-0.6 Abs Basophils 0 10^3/uL 0-0.2 Abs Nucleated RBC 0.01 10^3/uL Granulocyte % 62.7 % 38-83 Lymphocyte % 27.2 % 25-47 Monocyte % 6.4 % 1-9 Eosinophil % 2.8 % 0-6 Basophil % 0.9 % 0-2 Nucleated Red Blood Cells % 0.2 Vitamin D 1,25 And Vitamin 09/03/2017 Vitamin D Total 25(Oh) 12.7 ng/mL Low 20-50 D,2 Vitamin D, 1,25 Dihydroxy 75 pg/mL 28 Urine Culture And 04/23/2017 Urine Culture SEE RESULT BELOW 29 Sensitivities Ua Routine 04/23/2017 Ua Specific [place] 1.020 Ua PH 6 Ua Color yellow Ua Appera clear Ua WBC + Ua Protein trace Ua Glucose normal Ua Ketones negative Ua Bilirubin negative Ua Urobilinogen normal Ua Nitrite negative Ua Occult Blood negative Nicole Hep-2 11/24/2015 Nicole Pattern Centromere Negative Nicole Titer 1:5120 <1:80 Nicole Reviewed By MD Ila Melchor 30 Beta 2 Glycoprotein I Abs 11/24/2015 Beta 2 Glycoprotein IgG <4.0 U/mL 31 Beta 2 Glycoprotein IgM 16.9 U/mL 32 Free Thyroxine Index 11/24/2015 Thyroxine Binding 1.1 TBI 0.8 - 1.3 (Fti),Serum Panel Capacity, S Thyroxine, Total, S 7.4 g/dL 4.5 - 11.7 Free Thyroxine Index 6.7 g/dL 4.8 - 12.7 33 Neutrophil Cytoplasmic AB 11/24/2015 C-Anca Negative Negative P Anca Negative Negative Anca Reviewed By MD Ila Melchor 34 Laboratory test finding 11/24/2015 C Reactive Protein 1.56 mg/L < 5.00 35 Complement C3 82 mg/dL 75 - 175 36 Complement C4 20 mg/dL 14 - 40 37 Anti Dna (Double Stranded Dna) Negative Negative 38 Dena Screen Negative Negative 39 Erythrocyte Sed Rate 15 mm/Hr High 0-14 40 Phospholipid Igm AB <4.0 MPL 41 Nicole (Antinuclear 11/24/2015 Nicole (Anti-Nuclear AB) Reflexed to FA Negative Antibodies) Screen CBC Auto Diff 05/27/2014 White Blood Count [...] Egfr Non- 124.7 >60 Egfr 160.3 >60 42 Laboratory test finding 05/27/2014 Dena Screen Negative Negative 43 Erythrocyte Sed Rate 25 mm/Hr High 0-14 Cyclic Citrullinated Pept IgG <15.6 U 44 Neutrophil Cytoplasmic AB 05/27/2014 C-Anca Negative Negative P Anca Negative Negative Anca Reviewed By MD Ila Melchor 45 C-Anca Negative Negative P Anca Negative Negative Anca Reviewed By MD Ila Melchor 46 Laboratory test finding 05/27/2014 Rheumatoid Factor 31 IU/mL <15 47 C Reactive Protein 3.97 mg/L < 5.00 48 Nicole (Anti-Nuclear AB) Screen Reflexed to FA Negative Anti Double Stranded Dna Negative Negative Uric Acid 5.9 mg/dL 2.3-6.6 Hla B27 05/27/2014 Hla B27 Negative 49 Hla B27 Interp See Comment 50 Hepatitis Acute Panel 05/27/2014 Hepatitis B Surface Nonreactive Nonreactive Antigen Hepatitis B Core IgM Nonreactive Nonreactive Hepatitis A AB IgM Nonreactive Nonreactive Hepatitis C Antibody Nonreactive Nonreactive Nicole Hep-2 05/27/2014 Nicole Pattern Centromere Negative Nicole Titer 1:5120 <1:80 Nicole Reviewed By MD Mike Loera <SEE NOTE> 51 Laboratory test finding 08/28/2012 Rapid Influenza A B Antigen (SEE NOTE) 52 1 Normal Range 180 to 914 Indeterminate Range 145 to 180 Deficient Range <145 2 ADDITIONAL INFORMATION This test was developed and its performance characteristics determined by [facility] in a manner consistent with CLIA requirements. This test has not been cleared or approved by the U.S. Food and Drug Administration. Test Performed by: [facility] [place] [address] 3 ADDITIONAL INFORMATION This test was developed and its performance characteristics determined by [facility] in a manner consistent with CLIA requirements. This test has not been cleared or approved by the U.S. Food and Drug Administration. Test Performed by: [facility] [place] [address] 4 Because ethnic data is not always readily [...] 15-29 5 Kidney failure <15 (or dialysis) 5 [id number] 6 *Ascorbic acid is present which may interfere with detection of blood. 7 REFERENCE VALUE <1:80 (Negative) 8 Test Performed by: [facility] - [address] [address] 9 Negative for cANCA and pANCA patterns by immunofluorescence. ADDITIONAL INFORMATION This test was developed and its performance characteristics determined by [facility] in a manner consistent with CLIA requirements. This test has not been cleared or approved by the U.S. Food and Drug Administration. Test Performed by: [facility] - [address] [address] 10 REFERENCE VALUE <1.0 (Negative) Test Performed by: [facility] - [address] [address] 11 *Ascorbic acid is present which may interfere with detection of blood. 12 REFERENCE VALUE <1.0 (Negative) 13 REFERENCE VALUE <1.0 (Negative) 14 REFERENCE VALUE <1.0 (Negative) 15 REFERENCE VALUE <1.0 (Negative) 16 REFERENCE VALUE <1.0 (Negative) 17 REFERENCE VALUE <1.0 (Negative) Test Performed by: [address] [address] 18 Test Performed by: [facility] - [address] [address] 19 REFERENCE VALUE <20.0 (Negative) Test Performed by: [address] [address] 20 REFERENCE VALUE <15.0 (Negative) 21 REFERENCE VALUE <15.0 (Negative) Test Performed by: [address] [address] 22 Acute inflammation: >10.00 23 Test Performed by: [facility] - [facility] [address] [place] [address] 24 Test Performed by: [facility] [address] [place] [address] 25 REFERENCE VALUE <30.0 (Negative) Test Performed by: [facility] [address] [place] [address] 26 Test Performed by: [facility] [address] [place] [address] 27 Because ethnic data is not always readily [...] 15-29 5 Kidney failure <15 (or dialysis) 28 ADDITIONAL INFORMATION This test was developed and its performance characteristics determined by [facility] in a manner consistent with CLIA requirements. This test has not been cleared or approved by the U.S. Food and Drug Administration. Test Performed by: [facility] [address] [place] [address] 29 SEE RESULT BELOW Name: ENEIDA DE LOS SANTOS : [address]: Bianca Saini NP Acct: [id number] Unit: [id number] AGE: 37 Location: [facility] Re04/23/17 SEX: F Status: REG REF SPEC: [id number] JEN: 04/23/17-[address]: Bianca Saini NP REQ: [id number] RECD: 04/23/17 STATUS: COMP _ SOURCE: URINE SPDESC: ORDERED: Urine Culture COMMENTS: [id number] Urine Source: Random Procedure Result Reported Site Urine Culture Final 04/25/17- 0840 ML Organism 1 ESCHERICHIA COLI Dickey Count >100,000 (Many) CFU/ML 1. ESCHERICHIA COLI [...] any additional antibiotic reporting. * ML - [facility] ([facility]) . END OF REPORT * ML=Testing performed at Main Lab DEPARTMENT OF PATHOLOGY, [address] [place] [address] Mike Hernandez M.D. Director [facility] # [id number] 30 Ila Melchor 31 REFERENCE VALUE <10.0 (Negative) 32 Interpretation: Positive (>=15.0) REFERENCE VALUE <10.0 (Negative) Test Performed by: [address] [address] [employer]: Eduardo Anguiano II, M.D., Ph.D. 33 Test Performed by: [place] [id number] [employer]: Eduardo Anguiano II, M.D., Ph.D. 34 Ila Melchor 35 Acute inflammation: >10.00 36 Test Performed by: [place] [address] Hospitality Job Titles: Eduardo Anguiano II, M.D., Ph.D. 37 Test Performed by: [place] [address] Hospitality Job Titles: Eduardo Anguiano II, M.D., Ph.D. 38 this week please 39 The above DENA screen is designed for the detection of antibodies to extractable nuclear antigen (DENA) in human serum. It is a combination test for the detection of antibodies to GEOPHYSICAL DRAFTER, Sm, SS-A (Ro), and SS-B (La) nuclear antigens. 40 this week please 41 REFERENCE VALUE <10.0 (Negative) Test Performed by: [place] [address] Hospitality Job Titles: Eduardo Anguiano II, M.D., Ph.D. 42 Because ethnic data is not always readily [...] 15-29 5 Kidney failure <15 (or dialysis) 43 The above DENA screen is designed for the detection of antibodies to extractable nuclear antigen (DENA) in human serum. It is a combination test for the detection of antibodies to GEOPHYSICAL DRAFTER, Sm, SS-A (Ro), and SS-B (La) nuclear antigens. 44 -- REFERENCE VALUE -- <20.0 (Negative) Test Performed by: [place] [address] Hospitality Job Titles: Michael Dumont III, M.D. 45 Ila Melchor 46 Ila Melchor 47 Test Performed by: [place] [address] Hospitality Job Titles: Michael Dumont III, M.D. 48 Acute inflammation: >10.00 49 -- REFERENCE VALUE -- Not Applicable 50 RESULT: HLA-B27 antigen was not detected. Method: Flow Cytometry Performing Laboratory CLIA# [id number] Test Performed by: [place] [address] Hospitality Job Titles: Michael Dumont III, M.D. 51 Mike Hernandez 52 RUN DATE: 08/28/12 [facility] LAB LIVE PAGE 1 RUN TIME: [address] [place] [address] Specimen Inquiry Name: ENEIDA DE LOS SANTOS : [address]: Kellee Correia Acct: [id number] Unit: [id number] AGE: 32 Location: [facility] Re08/28/12 SEX: F Status: REG REF SPEC: [id number] JEN: 08/28/[address] [facility] [address]: Kellee Correia REQ: [id number] RECD: 08/28/12 STATUS: COMP _ SOURCE: [facility]: ORDERED: Rapid Flu A B QUERIES: Medent Number [id number] Procedure Result Verified Site Rapid Influenza A [...] performed at Main Lab DEPARTMENT OF PATHOLOGY, [address] [place] [address] Mike Hernandez M.D. Director [facility] Permit #[id number] Procedures Date CPT Code Description Status 09/09/2017 45619 Laparoscopy Surgical Enterolysis Completed 09/09/2017 00704 Laparoscopy Surgical Enterolysis Completed 10/20/2013 38859 EKG, Interpretation Only Completed 02/21/2013 94595 Polysomnography Sleep Staging 4+ Parameters W/Cpap Completed 02/02/2013 67163 Polysomnography Sleep Staging 4+ Parameters Completed Encounters Type Date Location Provider CPT E/M Dx Office Visit 09/02/2017 [facility] Donato Fulton M.D. 64407 M35.9 4:40p [facility] I73.00 M34.1 R53.83 Z79.899 R31.9 M70.60 Office Visit 08/27/2017 9:15a [facility] [place], [address] R10.12 [facility] FACS Z98.84 Office Visit 04/23/2017 1:00p [facility] - KRISHAN Patel [address] N39.0 Office Visit 11/23/2015 10:00a [facility] Donato Fulton [address]154 M35.01 [facility] Suzy I73.00 R53.83 R76.0 Office Visit 11/15/2014 9:30a [facility] [place] [address] 959.09 Office Visit 06/08/2014 1:20p [facility] João Garcia M.D. 85492 710.2 [facility] 795.79 Office Visit 05/25/2014 2:00p [facility] João Garcia M.D. 75426 710.2 [facility] 795.79 Office Visit 11/25/2012 1:08p [facility] Jack Galan, [address] 786.09 [facility] Suzy 780.79 Office Visit 08/28/2012 10:20a [facility] Kellee Correia, N.P. 60704 466.0 - Gladys Plan of Care Future Appointment(s):01/06/2018 4:00 pm - Donato Fulton M.D. 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
--- OUTSIDE RECORDS SUMMARY | 2017-11-03 11:37 | XMS REPORT ---
:1980 External Reference #:[id number] Author Organization [facility] Address [address] [place] [address] Phone [phone] Care Team Providers Name Role Phone Temi Calderon MD Primary Care Physician Unavailable Payers Type Date Identification Numbers Payment Provider Subscriber Commercial Policy Number: [id number] Jerry BC/BS [facility] Eneida Garcia PayID: [id number] [address] [address] [place] [address] Problems Description No Information Family History Date Family Member(s) Problem(s) Comments Father due to Aneurysm () - heart Mother Hypothyroidism Mother Hypercholesterolemia Children 1 First Daughter A&W Siblings 1 First Brother Hypertension Paternal Grandfather due to Auto Accident () Paternal Grandmother due to Diabetes () Maternal Grandfather due to Unknown Causes () Maternal Grandmother due to Diabetes () Social History Type Date Description Comments Marital Status Single Lives With Boyfriend Lives With Daughter 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 Cigarette Use Never Smoked Cigarettes ETOH Use Does Not Drink Alcohol Recreational Drug Use Does Not Use Drugs Smoking Patient has never smoked Daily Caffeine Consumes on average 1 soda per day Exercise Type/Frequency Exercises regularly Seat Belt/Car Seat Always uses seat belt Currently Active Patient is currently sexually active Contraceptive Methods None STD's No STD History Allergies, Adverse Reactions, Alerts Date Description Reaction Status Severity Comments 10/13/2017 NKDA active Medications Medication Date Status Form Strength Qnty SIG Indications Ordering Provider Vitamin B 12 Active Unknown 00 Iron (Ferrous Active Unknown Gluconate) 00 Vitamin D3 Active Unknown 00 Hydroxychloroquine Active Unknown Sulfate 00 Vital Signs Date Vital Result Comment 10/13/2017 BP Systolic 120 mmHg BP Diastolic 74 mmHg Height 59 inches 4'11" Weight 150.00 lb BMI (Body Mass Index) 30.3 kg/m2 Last Menstrual Period [id number] 1 Parity 1 Results Test Date Test Result H/L Range Note Lung Maturity 09/30/2002 Lung Maturity 117 mg/g 1 Volume 3 ML Laboratory test finding 06/29/2002 Glucose 1 HR Post 124 mg/dL 70-160 Prandial Laboratory test finding 05/20/2002 TSH 3.08 MIU/ML 0.34-5.60 2 Thyroxine Free 05/20/2002 Free Thyroxine 0.57 ng/dL Low 0.58-1.64 3 1 RESULT INTERPRETATION ------ Less than or equal to 39 mg/g IMMATURE Greater than or equal to 55 mg/g MATURE Results between 40-54 mg/g cannot be declared "mature" or "immature" and should be evaluated with caution. Interpret results with caution for diabetic patients, in cases of multiple births and in fetuses with kidney or urinary anomalies visible by ultrasound. . 2 Please note updated reference range, effective 05/19/02 . 3 Please note updated reference range, effective 05/19/02 . Procedures Description No Information Plan of Care No Information Available
--- OUTSIDE RECORDS SUMMARY | 2017-11-03 11:37 | XMS REPORT ---
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 Payers Type Date Identification Numbers Payment Provider Subscriber Health Maintenance Policy Number: [facility] Eneida Garcia [facility] ([facility] [place] [id number] PayID: [id number] [address] [address] [place] [id number] Medigap Part B Effective: 06/08/2011 Policy Number: [facility] Eneida Garcia [id number] Expires: 08/07/2017 PayID: [id number] Yenifer Sheppard46 [address] [place] [phone] Workers Compensation Onset: 09/21/2014 Policy Number: State Mamie Garcia [id number] Insurance PayID: [id number] [address] [place] [address] Problems Date Description Provider Status Onset: 02/27/2017 Anxiety state Temi Calderon MD Active Onset: 05/22/2017 Keratoconjunctivitis sicca, in Temi Calderon MD Active Sjogren's syndrome Onset: 02/25/2012 Morbid obesity Alessandra Conklin, Resolved [employer] Resolved: 10/17/2016 Family History Date Family Member(s) Problem(s) Comments Father Obesity Father due to AAA () - age 40 Father Hypertension Mother Obesity Mother Hypercholesterolemia Mother Thyroid Disease First Brother Obesity Social History Type Date Description Comments Education Higest level completed, Bachelor's Degree Marital Status Single Lives With Daughter 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 [employer] Hand Dominance RIGHT-handed ETOH Use Rarely consumes alcohol Smoking Patient has never smoked Allergies, Adverse Reactions, Alerts Date Description Reaction Status Severity Comments 09/28/2014 NKDA active Medications Medication Date Status Form Strength Qnty SIG Indications Ordering Provider Oseltamivir 10/30 Hx Capsules 75mg 10cap 1 by mouth J11.89 [place]ha Phosphate s twice a Joyce andersen - dru BONILLA 11/04 Plaquenil 09/02 Active Tablets 200mg 60tab 1 by mouth M35.9 Kirstin, s every day Donato DICK for 1 week then 2 by mouth daily ongoing Omeprazole 08/[address] 20mg 14cap 1 by mouth R10.12 Manny, s every day DO Chris Vitamin B-12 02/27 Active Tablets 1000mcg 1 by mouth D51.9 Kvng, every day MD Temi Ferrous Sulfate 02/27 Active Tablets 325mg 1 by mouth D50.9 Kvng every day MD Temi Tylenol 8 Hour 02/04 Active Tablets ER 650mg 1 tabs Kvng Arthritis Pain twice MD Temi daily for arthritis pain Vitamin D-1000 09/28 Active Tablets 1000Unit 90tab 1 by mouth Manny, Maximum Strength /2014 s every day DO Chris Meloxicam Active Tablets 7.5mg Kirstin, /0000 Donato DICK Hydroxychloroquin Active Tablets 200mg Kirstin, e Sulfate /0000 Donato DICK Metronidazole 08/22 Hx Tablets 500mg 14tab 1 tablet Manny, s by mouth Mala Perez twice DO 08/29 daily for 7 days Escitalopram 02/10 Hx Tablets 10mg 30tab 1 by mouth F41.1 Kvng Oxalate s every day MD Temi - 05/20 Duloxetine HCL 02/04 Hx Caps 30mg 53cap 1 by mouth F41.9 Kvng Part s every day MD Temi - x 1 week 05/20 then increase dose to 2 po daily Prednisone 10/17 Hx Tablets 10mg 21tab 6 pills by M54.2 Kvng s mouth x 1 MD Temi - [...] Tablets 25mg 14tab 1 po daily F33.1 Bryant s Chris, - DO 08/06 Sertraline HCL 11/29 Hx Tablets 50mg 30tab 1/2 po s daily x 6 Chris, - days, then DO 12/18 to 1 po Cyclobenzaprine 05/08 Hx Tablets 5mg 60tab 2-2 by 847.0 Digiovann HCL s mouth a, - every 8 Alessandra, 11/29 hours as needed for pain Ciprodex 11/15 Hx Suspension 0.3-0.1% 1unit 5 drops s twice a - day x 10 12/06 days ear Vitamin B-12 09/28 Hx Tablets 500mcg 2 by mouth Manny, every day Chris, - DO 11/13 Biotin 5000 09/28 Hx Capsules 5mg take 2 by Bryant mouth Chris, - every day DO 11/13 [...] Ordering Provider Depo Medrol 40 Administered Injection Bran, MG 017 MD Joyce Depo Medrol 40 Administered Injection Bran, MG 017 MD Joyce Immunizations CPT Code Status Date Vaccine Lot # [id number] Given 02/25/2012 Tdap (Adacel) Ages 7 And Above Only Vital Signs Date Vital Result Comment 10/30/2017 Body Temperature 98.5 F Weight 150.00 lb Heart Rate 77 /min BP Systolic 112 mmHg BP Diastolic 74 mmHg Respiratory Rate 16 /min Height 61 inches 5'1"02/04/17 O2 % BldC Oximetry 99 % Ra BMI (Body Mass Index) 28.3 kg/m2 08/21/2017 Body Temperature 97.6 F Weight 148.00 [...] Test Date Test Result H/L Range Note Affirm 08/21/2017 Trichomonas Vaginalis Negative Negative Gardnerella Vaginalis Positive Negative Cheryl Species Negative Negative Laboratory test 08/21/2017 Urine Culture Microbiology res 1 finding <SEE NOTE> GC/Chlamydia By Dna 08/21/2017 Chlamydia by Dna NEGATIVE Negative Probe Probe GC by Dna Probe NEGATIVE Negative Laboratory test 08/19/2017 Urine Culture Microbiology res 2 finding <SEE NOTE> Laboratory test 08/19/2017 Vitamin B12 674 pg/mL 180-914 finding Laboratory test 08/19/2017 Cytology Fluid SEE NOTE 3 finding Specimen CBC With Auto Diff 08/19/2017 [...] test finding 08/19/2017 Lipase 12 U/L 11-82 Basic (BMP) 08/19/2017 Sodium 140 mmol/L 135-146 4 Potassium 4.2 mmol/L 3.5-5.2 Chloride# 104 mmol/L 97-110 5 Carbon Dioxide 31 mmol/L 24-34 Glucose 88 mg/dL 70-105 Creatinine 0.5 mg/dL 0.5-1.4 Calcium 8.9 mg/dL 8.5-10.2 Non Melissa Egfr >60 >60 6 Melissa Egfr >60 >60 7 Anion Gap 5 mmol/L Low 7-16 8 BUN 12 mg/dL 6-26 Hepatic Panel (LFT) 08/19/2017 Total Protein 6.5 g/dL 6.0-8.0 Albumin 4.4 g/dL 3.6-4.9 Total Bilirubin 0.7 mg/dL 0.1-1.3 Direct Bilirubin 0.1 mg/dL 0.0-0.4 Alkaline Phosphatase 44 U/L 24-140 Alt 8 U/L 3-42 Ast 11 U/L 8-42 Laboratory test finding 02/20/2017 TSH 3.5 Free Thyroxine Index 11/24/2015 Free Thyroxine Index 6.7 g/dL 4.8 - 12.7 (Fti),Serum Panel Thyroxine Binding Capacity, S 1.1 TBI 0.8 - 1.3 9 Thyroxine, Total, S 7.4 g/dL 4.5 - 11.7 Laboratory test finding 11/24/2015 Beta 2 Glycoprotein IgM 16.9 U/mL 10 C Reactive Protein 1.56 mg/L < 5.00 11 Complement C3 82 mg/dL 75 - 175 12 Complement C4 20 mg/dL 14 - 40 13 Erythrocyte Sed Rate 15 mm/Hr High 0-14 14 Laboratory test finding 11/14/2015 Ferritin 45.5 ng/ml 11.0-306.0 Vitamin B12 >1500 pg/mL High 180-914 Vit D,25 Hydroxy 43 ng/mL 31-100 Esr 10 mm/hr 0-20 Jordan Screen Pos Neg 15 TSH 1.62 uIU/mL 0.35-4.94 Laboratory test finding 11/14/2015 Scleroderma Igg AB NEGATIVE INDEX (Neg ) 16 Comprehensive Metabolic 11/14/2015 Sodium 140 mmol/L 134-142 (CMP) Potassium 4.0 mmol/L 3.5-5.2 Chloride 103 mmol/L [...] 8 mmol/L 6-14 Melissa Egfr >60 >60 17 Non Melissa Egfr >60 >60 18 CBC With Auto Diff 11/14/2015 WBC 5.1 [...] Basophils 0.0 K/uL 0.0-0.3 Laboratory test finding 05/27/2014 Albumin 4.4 g/dL 3.2-5.2 Albumin/Globulin Ratio 1.8 1 1-3 Alkaline Phosphatase 44 U/L 34-104 Alt 10 U/L 7-52 Anion Gap 5 mmol/L 2-11 Ast 12 U/L Low 13-39 BUN/Creatinine Ratio 21.4 1 High 8-20 Blood Urea Nitrogen 12 mg/dL 6-24 C Reactive Protein 3.97 mg/L < 5.00 19 Calcium 8.9 mg/dL 8.6-10.3 Chloride 103 mmol/L 101-111 Co2 Carbon Dioxide 30 mmol/L 22-32 Creatinine 0.56 mg/dL 0.51-0.95 Egfr 160.3 1 >60 Egfr Non- 124.7 1 >60 Erythrocyte Sed Rate 25 mm/Hr High 0-14 20 Globulin 2.5 g/dL 2-4 Glucose 84 mg/dL 70-100 Potassium 3.8 mmol/L 3.7-5.6 Rheumatoid Factor 31 IU/mL <15 21 Sodium 138 mmol/L 133-145 22 Total Bilirubin 0.60 mg/dL 0.2-1.0 Total Protein 6.9 g/dL 6.4-8.9 Uric Acid 5.9 mg/dL 2.3-6.6 CBC Auto Diff 05/27/2014 Abs Basophils 0 10^3/uL 0-0.2 Abs Eosinophils 0.1 10^3/uL 0-0.6 Abs Lymphocytes 1.9 10^3/uL 1.0-4.8 Abs Monocytes 0.4 10^3/uL 0-0.8 Abs Neutrophils 3.6 10^3/uL 1.5-7.7 Abs Nucleated RBC 0.01 10^3/uL Basophil % 0.6 % 0-2 Eosinophil % 1.2 % 0-6 Granulocyte % 60.3 % 38-83 Hematocrit 39 % 35-47 Hemoglobin 13.8 g/dL 12.0-16.0 Lymphocyte % 31.5 % 25-47 Mean Corpuscular HGB Conc 35 g/dL 31-36 Mean Corpuscular Hemoglobin 32 pg High 27-31 Mean Corpuscular Volume 91 fL 80-97 Mean Platelet Volume 8 um3 7.4-10.4 Monocyte % 6.4 % 1-9 Nucleated Red Blood Cells % 0.2 1 Platelet Count 227 10^3/uL 150-450 Red Blood Count 4.31 10^6/uL 4.0-5.4 Red Cell Distribution Width 12 % 10.5-15 White Blood Count 6.0 10^3/uL 4.8-10.8 1 Microbiology results SOURCE Random urine FINAL RESULT 50,000 CFU/ML Mixed urogenital karlo consistent with contamination. Request fresh specimen if indicated. 2 Microbiology results SOURCE Random urine FINAL RESULT 25,000 CFU/ML Mixed urogenital karlo consistent with contamination. Request fresh specimen if indicated. [address] [facility]. [address] [place] [id number] CYTOLOGY REPORT Source of Specimen(s): A: LBP [...] Out By Bolivar Bernardo MD [facility] Merchandising Specialist: Cordelia SHI([facility]) [facility] ICD Code: R31.2 Unless otherwise specified, testing performed by [facility] [place] [address] [address] 4 Updated reference range on new analyzer 5 Updated reference range on new analyzer 6 Concerning GFR Guidelines: Normal function or mild [...] drugs that are excreted by the kidneys. 7 Concerning GFR Guidelines for Americans: Normal function or mild renal disease, if clinically at risk: >/=60 mL/min Moderately decreased: 30-59 Severely decreased: 15-29 Renal failure: <15 8 Updated reference range on new analyzer 9 Test Performed by: [place] [address] Cement Truck Loader: Eduardo Anguiano II, M.D., Ph.D. 10 Interpretation: Positive (>=15.0) REFERENCE VALUE <10.0 (Negative) Test Performed by: [place] [address] Cement Truck Loader: Eduardo Anguiano II, M.D., Ph.D. 11 Acute inflammation: >10.00 12 Test Performed by: [place] [address] Cement Truck Loader: Eduardo Anguiano II, M.D., Ph.D. 13 Test Performed by: [place] [address] Cement Truck Loader: Eduardo Anguiano II, M.D., Ph.D. 14 this week please 15 Screen for JORDAN is positive. Please triage the lab within 5 days if you would like additional testing. 16 Unless otherwise specified, testing performed by [facility] [place] [facility] [address] [place] [address] 17 Concerning GFR Guidelines for Americans: Normal function or mild renal disease, if clinically at risk: >/=60 mL/min Moderately decreased: 30-59 Severely decreased: 15-29 Renal failure: <15 18 Concerning GFR Guidelines: Normal function or mild [...] drugs that are excreted by the kidneys. 19 Acute inflammation: >10.00 20 -- REFERENCE VALUE -- <20.0 (Negative) Test Performed by: [place] [address] Cement Truck Loader: Michael Dumont III, M.D. 21 Test Performed by: [place] [address] [place] [address] Cement Truck Loader: Michael Dumont III, M.D. 22 Because ethnic data is not always readily [...] 15-29 5 Kidney failure <15 (or dialysis) Procedures Date CPT Code Description Status Comment 10/30/2017 28553 Measure Blood Oxygen Level Single Completed Determination 08/22/2017 35801 Cat Scan Abdomen W/O Contrast, Completed Followed By Contrast 08/05/2017 55896 Admin Of Inj (Therapeutic Completed Phrophylactic Or Diagnostic Subq Inj 08/05/2017 01374 Admin Of Inj (Therapeutic Completed Phrophylactic Or Diagnostic Subq Inj 10/23/2016 06109 Measure Blood Oxygen Level Single Completed Determination 10/17/2016 46923 X-Ray Spine Cervical, 6 Or More Completed Views 10/17/2016 00545 X-Ray Spine Cervical, 4 Or 5 Views Completed 12/19/2015 17114 Electrocardiogram Complete Completed 12/19/2015 06427 Measure Blood Oxygen Level Single Completed Determination 12/07/2015 06770 Measure Blood Oxygen Level Single Completed Determination 05/08/2015 39215 X-Ray Spine Cervical, 4 Or 5 Views Completed 05/08/2015 32857 Remove Impacted Cerumen Requiring Completed Instrumentation 09/28/2014 12150 Visual Screening Test Completed 09/28/2014 55452 Visual Screening Test Completed 02/25/2012 61409 Visual Screening Test Completed 02/25/2012 60373 Screening Hearing Test Completed 08/27/2010 22987 Colonoscopy Flexible Diagnostic Completed Dr. Bazzi - Normal Encounters Type Date Location Provider CPT E/M Dx Office Visit 08/21/2017 4:15p [facility] [place] [address] R30.0 R31.29 Z11.3 Office Visit 08/19/2017 11:00a [facility] [place] [address] R10.12 R31.29 Office Visit 08/05/2017 4:15p [facility] [place] [address] M70.62 M70.61 M54.5 Office Visit 02/27/2017 4:15p [facility] [place] [address] F41.9 G47.33 D51.9 D50.9 Office Visit 02/04/2017 2:30p [facility] [place] [address] F41.9 G47.00 Z98.84 I73.00 M70.60 Office Visit 10/23/2016 1:00p [facility] [place] [address] J06.9 Office Visit 10/17/2016 10:15a [facility] [place] [address] M54.2 Office Visit 08/06/2016 2:30p [facility] [place] [place] [address] M54.2 M54.12 Office Visit 01/06/2016 9:00a [facility] [place] [address] F33.1 H83.09 Office Visit 12/19/2015 1:00p [facility] [place] [address] R07.89 F33.1 Office Visit 12/07/2015 11:00a [facility] [place] [address] J01.90 F43.0 Office Visit 11/14/2015 1:45p [facility] [place] [address] I73.00 Z98.84 R53.83 K59.00 Office Visit 05/08/2015 2:45p [facility] Rayjosiah AlessandraRAE [address] 784.0 847.0 380.4 Office Visit 10/19/2014 2:30p [facility] [place] [address] 850.9 850.9 Office Visit 09/28/2014 2:30p [facility] [place] [address] 850.9 850.9 Plan of Care Future Appointment(s):11/26/2017 10:30 am - Temi Calderon MD at [facility]10/30/2017 - Joyce Bran MDJ11.89 Influenza due to unidentified influenza virus w oth manifestNew Medication:Oseltamivir Phosphate 75 mgComments:clinical diagnosis of flu possiblept is HIGH risk risk factors warrant antiviral treatment tamiflue 75mg twice daily for 5 days, we can extend this if still significantly ill, reviewed side effects. advised rest, fluids, bland diet, and stay at home until afebrile for 24 hoursmay use supportive meds ie tyl/ibuprofen /aleve as needed for discomfortsseek care for serious consequences such as stiff neck/severe headache/mental status changes, inability to keep fluids down , significant shortness of breath, chest pain, increased steady cough sae with steady sputum, persistent temp 100.5+ more than a few days, or call for any concerns that appear serious.have boyfriend get flu vax, he could get a different strain that could then go to youFollow up:Followup: as needed.M35.09 Sicca syndrome with other organ involvementComments:Immune suppressed due to Sjogren's on meds as noted. Hold these meds while it and until fever is gone, systemic symptoms are gone
[2017-11-03 11:40] VITALS: BP 108/67
--- NOTE | 2017-11-03 12:18 | UC ---
Respiratory Complaint HPI - HPI Summary HPI Summary: Pt c/o cough, sinus congestion, pressure and pain, cough and generalized malaise X 2 weeks. - History of Current Complaint Chief Complaint: UCGeneralIllness Stated Complaint: HEADACHE COUGH CHEST CONGESTION Time Seen by Provider: 11/03/17 11:57 Hx Obtained From: Patient Hx Last Menstrual Period: 2007 ?: No Onset/Duration: Gradual Onset, Lasting Weeks, Still Present Timing: Constant Severity Initially: Mild Severity Currently: Moderate Pain Intensity: 7 Character: Cough: Nonproductive Aggravating Factors: Recumbent Position Alleviating Factors: Nothing Associated Signs And Symptoms: Positive: Fever, Chills, URI, Nasal Congestion, Sinus Discomfort - Risk Factors Pulmonary Embolism Risk Factors: Negative Cardiac Risk Factors: Negative Pseudomonas Risk Factors: Negative Tuberculosis Risk Factors: Negative, Gastrectomy - gastric bypass - Allergies/Home Medications Allergies/Adverse Reactions: Allergies Allergy/AdvReac Type Severity Reaction Status Date / Time No Known Allergies Allergy Verified 11/03/17 11:37 PMH/Surg Hx/FS Hx/Imm Hx Previously Healthy: Yes Other History Of: Negative For: HIV, Hepatitis B, Hepatitis C, Anticoagulant Therapy - Surgical History Surgical History: Yes Surgery Procedure, Year, and Place: Gastric bypass 2013. hysterectomy 2007. lumbar herniated disc repair. C SECTION 2002 - Family History Known Family History: Positive: Cardiac Disease, Hypertension, Diabetes - Social History Occupation: Employed Full-time Lives: With Family Alcohol Use: Rare Alcohol Amount: FEW DRINKS/YR Substance Use Type: None Smoking Status (MU): Never Smoked Tobacco Have You Smoked in the Last Year: No - Immunization History Most Recent Influenza Vaccination: 06/04/16 Most Recent Tetanus Shot: 2013 Most Recent Pneumonia Vaccination: NEVER Review of Systems Constitutional: Fever, Chills, Fatigue Skin: Negative Eyes: Negative ENT: Sore Throat, Sinus Congestion, Sinus Pain/Tenderness Respiratory: Cough Cardiovascular: Negative Gastrointestinal: Negative Genitourinary: Negative Motor: Negative Neurovascular: Negative Musculoskeletal: Myalgia Neurological: Headache Psychological: Negative Is Patient Immunocompromised?: No All Other Systems Reviewed And Are Negative: Yes Physical Exam Triage Information Reviewed: Yes Appearance: Ill-Appearing Vital Signs: Initial Vital Signs Temp 98.5 F 11/03/17 11:34 Pulse 67 11/03/17 11:34 Resp 15 11/03/17 11:34 BP 108/67 11/03/17 11:34 Pulse Ox 100 02/26/18 11:34 Vital Signs Reviewed: Yes Eye Exam: Normal ENT Exam: Other ENT: Positive: Nasal congestion, Sinus tenderness Dental Exam: Normal Neck exam: Normal Respiratory Exam: Normal Cardiovascular Exam: Normal Musculoskeletal Exam: Normal Neurological Exam: Normal Psychological Exam: Normal Skin Exam: Normal UC Diagnostic Evaluation - Laboratory O2 Sat by Pulse Oximetry: 100 Respiratory Course/Dx - Differential Dx/Diagnosis Differential Diagnosis/HQI/PQRI: Bronchitis, Influenza, Sinusitis Provider Diagnoses: Sinusitis Discharge - Discharge Plan Condition: Stable Disposition: HOME Prescriptions: Amoxicillin/Clavulanate TAB* [Augmentin TAB 875*] 875 mg PO Q12H #20 tab Benzonatate CAP* [Tessalon 100 MG CAP*] 100 mg PO Q8H PRN #21 cap PRN Reason: Cough predniSONE TAB* [Deltasone TAB*] 30 mg PO DAILY #12 tab Patient Education Materials: Sinusitis (ED) Referrals: Temi Calderon MD [Primary Care Provider] - If Needed
== END 2017-11-03 12:27 | disposition home or self-care (01) ==
LOC: UCCORT 10:48
DX: J32.9 Chronic sinusitis, unspecified (principal)
CPT/HCPCS: 99212; G0463

== ENCOUNTER 2018-02-13 07:46 | Emergency (ER) | payer BC ==
[2018-02-13 08:10] VITALS: BP 116/78
--- NOTE | 2018-02-13 08:46 | UC ---
Complaint Female HPI - HPI Summary HPI Summary: PATIENT PRESENTS COMPLAINING OF 9 MONTHS OF RECURRENT URINARY SYMPTOMS INCLUDING DISCOMFORT, FREQUENCY, URGENCY AND LOWER ABDOMINAL PRESSURE. SHE HAS HAD MULTIPLE URINE CULTURES WHICH SHE REPORTS HAVE ALL RETURNED NEGATIVE FOR BACTERIAL GROWTH. PRIOR TO 9 MONTHS AGO SHE HAD THE OCCASIONAL URINARY TRACT INFECTION BUT NOT FREQUENTLY. SHE DENIES ANY FEVER, NAUSEA/VOMITING. SHE WAS DIAGNOSED WITH SJOGREN'S IN 2014. SHE SEES DR. CARUSO (RHEUMATOLOGY) FOR THIS. SHE CALLED HER PCP YESTERDAY SHE HAS HAD SYMPTOMS FOR THE PAST 3 DAYS AND WAS GIVEN A COURSE OF CLINDAMYCIN 300 MG TWICE DAILY FOR 7 DAYS. IT SEEMS SHE IS BEING TREATED FOR POSSIBLE BV. SHE DENIES ANY VAGINAL DISCHARGE OR IRRITATION. SHE IS SEXUALLY ACTIVE WITH 1 MALE PARTNER. SHE IS NOT CONCERNED ABOUT STDS. WILL ALSO BE FOLLOWING UP WITH [employer] FOR AN OVARIAN CYST. PYRIDIUM PROVIDES SOME RELIEF. - History Of Current Complaint Chief Complaint: UCGU Stated Complaint: URINARY Time Seen by Provider: 02/13/18 07:56 Hx Obtained From: Patient Hx Last Menstrual Period: 2007 Onset/Duration: Gradual Onset, Lasting Days, Still Present Timing: Constant Severity Initially: Moderate Severity Currently: Moderate Pain Intensity: 8 Pain Scale Used: 0-10 Numeric Character: Burning Aggravating Factor(s): Urination Alleviating Factor(s): Nothing Associated Signs And Symptoms: Positive: Back Pain. Negative: Fever, Vaginal Discharge, Nausea - Allergies/Home Medications Allergies/Adverse Reactions: Allergies Allergy/AdvReac Type Severity Reaction Status Date / Time No Known Allergies Allergy Verified 02/13/18 07:57 Home Medications: Home Medications Calcium Carbonate CHEW TAB* [Tums*] 500 mg PO ONCE 02/13/18 [History Confirmed 02/13/18] Cholecalciferol TAB* [Vitamin D TAB*] 1,000 unit PO DAILY 02/13/18 [History Confirmed 02/13/18] Clindamycin Cap(NF) [Clindamycin Cap 300 mg Cap(NF)] 300 mg PO BID PRN 02/13/18 [History Confirmed 02/13/18] Cranberry Conc/C/Bacill Coag [Cranberry Tablet] 2 each PO ONCE 02/13/18 [ History Confirmed 02/13/18] Cyanocobalamin TAB* [Vitamin B12 TAB*] 1,000 mcg PO DAILY 02/13/18 [History Confirmed 02/13/18] Ferrous Sulfate TAB* 650 mg PO DAILY 02/13/18 [History Confirmed 02/13/18] Phenazopyridine HCl [Urinary Pain Relief] 195 mg PO TID PRN 02/13/18 [History Confirmed 02/13/18] PMH/Surg Hx/FS Hx/Imm Hx - Additional Past Medical History Additional PMH: SJOGREN'S, RAYNAUDS Other History Of: Negative For: HIV, Hepatitis B, Hepatitis C, Anticoagulant Therapy - Surgical History Surgical History: Yes Surgery Procedure, Year, and Place: Gastric Bypass, 2013, [facility] [place]; Partial Hysterectomy, 2007, [facility] [place]; Lumbar Discectomy[facility] 2007, [facility]; , 2002 , [facility] [place] - Family History Known Family History: Positive: Cardiac Disease, Hypertension, Diabetes - Social History Alcohol Use: Rare Alcohol Amount: FEW DRINKS/YR Substance Use Type: None Smoking Status (MU): Never Smoked Tobacco Have You Smoked in the Last Year: No - Immunization History Most Recent Influenza Vaccination: 06/04/16 Most Recent Tetanus Shot: 2013 Most Recent Pneumonia Vaccination: NEVER Review of Systems Constitutional: Negative Respiratory: Negative Cardiovascular: Negative Gastrointestinal: Abdominal Pain Genitourinary: Dysuria, Frequency, Urgency Neurological: Headache All Other Systems Reviewed And Are Negative: Yes Physical Exam Triage Information Reviewed: Yes Appearance: Well-Appearing, No Pain Distress, Well-Nourished Vital Signs: Initial Vital Signs Temp 97.9 F 02/13/18 07:52 Pulse 80 02/13/18 07:52 Resp 17 02/13/18 07:52 BP 116/78 02/13/18 07:52 Pulse Ox 100 02/13/18 07:52 Vital Signs Reviewed: Yes Eyes: Positive: Conjunctiva Clear ENT: Positive: Hearing grossly normal Neck: Positive: Supple Respiratory: Positive: No respiratory distress, No accessory muscle use Cardiovascular: Positive: Pulses Normal Abdomen Description: Positive: Soft, Other: - MILD SUPRAPUBIC TTP. Negative: CVA Tenderness (R), CVA Tenderness (L), Distended, Guarding Musculoskeletal: Positive: No Edema Neurological: Positive: Alert Psychological: Positive: Age Appropriate Behavior Skin: Negative: rashes Complaint Female Dx - Differential Dx/Diagnosis Provider Diagnoses: CYSTITIS Discharge - Sign-Out/Discharge Documenting (check all that apply): Discharge/Admit/Transfer - Discharge Plan Condition: Stable Disposition: HOME Patient Education Materials: Interstitial Cystitis (ED) Referrals: [facility] [Provider Group] - 2 Weeks Temi Calderon MD [Primary Care Provider] - If Needed Donato Caruso MD [Medical Doctor] - 1 Week Additional Instructions: GIVEN YOUR RECURRENT URINARY SYMPTOMS AND HISTORY OF SJOGREN'S I AM SUSPICIOUS FOR INTERSTITIAL CYSTITIS. FOLLOW-UP WITH YOUR [employer] AND UROLOGY TO FURTHER DISCUSS MANAGEMENT. IN THE MEANTIME WOULD RECOMMEND TRYING SOME SELF- CARE AND BEHAVIOR MODIFICATION INTERVENTIONS TO SEE IF YOUR SYMPTOMS IMPROVE. THESE ARE DETAILED BELOW. WE HAVE SENT YOUR URINE FOR CULTURE TODAY. THE COURSE OF CLINDAMYCIN YOU ARE ON LOOKS TO BE TREATING FOR BV. YOU MAY CONTINUE TO TAKE THIS MEDICATION TO SEE IF IT IMPROVES YOUR SYMPTOMS. INTERSTITIAL CYSTITIS What is bladder pain syndrome? Bladder pain syndrome is a condition that causes people to have bladder pain and urinate often (figure 1). Bladder pain syndrome is often called "BPS" for short. It is also sometimes called "painful bladder syndrome" or "interstitial cystitis." BPS can happen in both men and women, but it is more common in women. Doctors do not know what causes BPS, but some doctors suspect it might be caused by abnormal changes in the lining of the bladder. Sometimes, BPS happens on its own. Other times, it starts after a person has: -An infection of the urinary tract, vagina, or prostate -Surgery on the bladder, pelvis, or back -An injury to the pelvic area or buttocks What are the symptoms of BPS? All people with BPS have bladder pain that gets better after urinating. Other common symptoms include: -Feeling the need to urinate often, during the day and night (even if you don't actually urinate) -Urinating often, during the day and night -Pain in the lower belly or around the area where urine leaves the body Symptoms of BPS are different from person to person and can be mild or severe. People might not have symptoms every day. But they can have "flares," which are times when their symptoms get worse. Some people find that their symptoms get worse at certain times, such as: -After they have certain foods or drinks -During certain times of their monthly cycle (in women) -After having sex or sitting for a long time -During times of stress Is there a test for BPS? There is no one test to check for BPS. But your doctor or nurse will talk with you, do an exam, and probably do a urine test. Depending on the results, your doctor might do other tests, too. For example, some people have a test called "cystoscopy." During cystoscopy, a doctor puts a thin tube with a camera on the end into the opening in the body where urine comes out (called the urethra). Then he or she advances the tube until it reaches the bladder. That way the doctor can look at the inside of the bladder to see if it is abnormal. How is BPS treated? There are different treatments for BPS. Most people need more than one treatment. Different treatments can include: -Bladder training You can train your bladder to urinate less often by holding your urine for longer periods of time. For example, if you feel the need to urinate every 30 minutes, try to wait and urinate every 45 minutes. -Physical therapy Many people with BPS have tight and painful muscles in the lower belly, groin, and buttocks. A physical therapist can teach you exercises to help relax these muscles. -Medicines Doctors can use different medicines to treat BPS. Some medicines help heal the bladder lining, and others can reduce pain. Some medicines come as pills. Others come as liquids and go into the bladder through a tube that is put up the urethra (figure 1). -Surgery A person might have surgery if he or she still has symptoms after trying all other treatments. During surgery, a doctor puts a small device in the lower back that connects to the nerve that goes to the bladder. The device sends electrical signals to the nerve that can stop it from feeling pain. Can BPS flares be prevented? To help prevent flares, you can: -Avoid the foods and drinks that make your symptoms worse. -Avoid activities that make your symptoms worse. -Get treated quickly for bladder infections, which can make BPS symptoms worse. TRY THESE FIRST-LINE INTERVENTIONS: Self-care practices and behavior modification are first line therapies. Failing these, referral to a specialist may be indicated to discuss alternative treatment options including medications and physical therapy. - Application of local heat or cold over the bladder or perineum. - Avoidance of activities or food or beverages that exacerbate symptoms - Common irritants include caffeine, alcohol, artificial sweeteners, hot pepper, and vitamin C-containing foods. Providing a list that indicates foods to try as well as those to limit or avoid is helpful for patients. These foods may be avoided until symptoms resolve, at which time they may be reintroduced. In our experience, most patients with food sensitivities are aware of them and have already excluded these items from their diet. Research about the impact of food on IC is very limited; however, in a very small randomized trial, 30 patients who followed a specially developed diet experienced improvement in IC symptoms at three months and one year compared with those who followed a usual diet. Patients should also be asked to identify and avoid exercises, recreational activities, sexual activities, or body positions that seem to worsen the bladder symptoms. A symptom diary may be useful for some patients to identify such factors. - Fluid management A fluid and voiding diary can provide information to guide recommendations for fluid management; such recommendations should be individualized for each patient. Patients who experience worsening of symptoms with concentrated urine may find increasing fluid intake helpful. Others experience pain with bladder filling and may find that moderate fluid restriction provides some relief. Patients should be instructed to avoid extremes of fluid intake. In most patients, it is not necessary to drink more than 2 L of fluid per day. Those who restrict fluids should strive to maintain a pale yellow color to their urine. - Bladder training with urge suppression. - Billing Disposition and Condition Condition: STABLE Disposition: Home
--- NOTE | 2018-02-15 15:12 | UC ---
- Progress Note Progress Note: Please call patient and assure symptoms are resolving---If not assure follow up care has been secured if acutely worse encourage patient to go to hospital or urgent care to seek care Discharge - Sign-Out/Discharge Documenting (check all that apply): Post-Discharge Follow Up - Discharge Plan Condition: Stable Disposition: HOME Patient Education Materials: Interstitial Cystitis (ED) Referrals: [facility] [Provider Group] - 2 Weeks Temi Calderon MD [Primary Care Provider] - If Needed Donato Fulton MD [Medical Doctor] - 1 Week Additional Instructions: GIVEN YOUR RECURRENT URINARY SYMPTOMS AND HISTORY OF SJOGREN'S I AM SUSPICIOUS FOR INTERSTITIAL CYSTITIS. FOLLOW-UP WITH YOUR [employer] TESTER AND UROLOGY TO FURTHER DISCUSS MANAGEMENT. IN THE MEANTIME WOULD RECOMMEND TRYING SOME SELF- CARE AND BEHAVIOR MODIFICATION INTERVENTIONS TO SEE IF YOUR SYMPTOMS IMPROVE. THESE ARE DETAILED BELOW. WE HAVE SENT YOUR URINE FOR CULTURE TODAY. THE COURSE OF CLINDAMYCIN YOU ARE ON LOOKS TO BE TREATING FOR BV. YOU MAY CONTINUE TO TAKE THIS MEDICATION TO SEE IF IT IMPROVES YOUR SYMPTOMS. INTERSTITIAL CYSTITIS What is bladder pain syndrome? Bladder pain syndrome is a condition that causes people to have bladder pain and urinate often (figure 1). Bladder pain syndrome is often called "BPS" for short. It is also sometimes called "painful bladder syndrome" or "interstitial cystitis." BPS can happen in both men and women, but it is more common in women. Doctors do not know what causes BPS, but some doctors suspect it might be caused by abnormal changes in the lining of the bladder. Sometimes, BPS happens on its own. Other times, it starts after a person has: -An infection of the urinary tract, vagina, or prostate -Surgery on the bladder, pelvis, or back -An injury to the pelvic area or buttocks What are the symptoms of BPS? All people with BPS have bladder pain that gets better after urinating. Other common symptoms include: -Feeling the need to urinate often, during the day and night (even if you don't actually urinate) -Urinating often, during the day and night -Pain in the lower belly or around the area where urine leaves the body Symptoms of BPS are different from person to person and can be mild or severe. People might not have symptoms every day. But they can have "flares," which are times when their symptoms get worse. Some people find that their symptoms get worse at certain times, such as: -After they have certain foods or drinks -During certain times of their monthly cycle (in women) -After having sex or sitting for a long time -During times of stress Is there a test for BPS? There is no one test to check for BPS. But your doctor or nurse will talk with you, do an exam, and probably do a urine test. Depending on the results, your doctor might do other tests, too. For example, some people have a test called "cystoscopy." During cystoscopy, a doctor puts a thin tube with a camera on the end into the opening in the body where urine comes out (called the urethra). Then he or she advances the tube until it reaches the bladder. That way the doctor can look at the inside of the bladder to see if it is abnormal. How is BPS treated? There are different treatments for BPS. Most people need more than one treatment. Different treatments can include: -Bladder training You can train your bladder to urinate less often by holding your urine for longer periods of time. For example, if you feel the need to urinate every 30 minutes, try to wait and urinate every 45 minutes. -Physical therapy Many people with BPS have tight and painful muscles in the lower belly, groin, and buttocks. A physical therapist can teach you exercises to help relax these muscles. -Medicines Doctors can use different medicines to treat BPS. Some medicines help heal the bladder lining, and others can reduce pain. Some medicines come as pills. Others come as liquids and go into the bladder through a tube that is put up the urethra (figure 1). -Surgery A person might have surgery if he or she still has symptoms after trying all other treatments. During surgery, a doctor puts a small device in the lower back that connects to the nerve that goes to the bladder. The device sends electrical signals to the nerve that can stop it from feeling pain. Can BPS flares be prevented? To help prevent flares, you can: -Avoid the foods and drinks that make your symptoms worse. -Avoid activities that make your symptoms worse. -Get treated quickly for bladder infections, which can make BPS symptoms worse. TRY THESE FIRST-LINE INTERVENTIONS: Self-care practices and behavior modification are first line therapies. Failing these, referral to a specialist may be indicated to discuss alternative treatment options including medications and physical therapy. - Application of local heat or cold over the bladder or perineum. - Avoidance of activities or food or beverages that exacerbate symptoms - Common irritants include caffeine, alcohol, artificial sweeteners, hot pepper, and vitamin C-containing foods. Providing a list that indicates foods to try as well as those to limit or avoid is helpful for patients. These foods may be avoided until symptoms resolve, at which time they may be reintroduced. In our experience, most patients with food sensitivities are aware of them and have already excluded these items from their diet. Research about the impact of food on IC is very limited; however, in a very small randomized trial, 30 patients who followed a specially developed diet experienced improvement in IC symptoms at three months and one year compared with those who followed a usual diet. Patients should also be asked to identify and avoid exercises, recreational activities, sexual activities, or body positions that seem to worsen the bladder symptoms. A symptom diary may be useful for some patients to identify such factors. - Fluid management A fluid and voiding diary can provide information to guide recommendations for fluid management; such recommendations should be individualized for each patient. Patients who experience worsening of symptoms with concentrated urine may find increasing fluid intake helpful. Others experience pain with bladder filling and may find that moderate fluid restriction provides some relief. Patients should be instructed to avoid extremes of fluid intake. In most patients, it is not necessary to drink more than 2 L of fluid per day. Those who restrict fluids should strive to maintain a pale yellow color to their urine. - Bladder training with urge suppression. - Billing Disposition and Condition Condition: STABLE Disposition: Home
--- NOTE | 2018-02-17 08:17 | UC ---
- Progress Note Progress Note: Urine culture : + Ureaplasm Urea will sent a Rx for Cipro x 10 days make sure the ptl. follow up with Urology Discharge - Sign-Out/Discharge Documenting (check all that apply): Discharge/Admit/Transfer - Discharge Plan Condition: Stable Disposition: HOME Prescriptions: Ciprofloxacin TAB* [Cipro 500 MG TAB*] 500 mg PO BID #20 tab Patient Education Materials: Interstitial Cystitis (ED) Referrals: [facility] [Provider Group] - 2 Weeks Temi Calderon MD [Primary Care Provider] - If Needed Donato Fulton MD [Medical Doctor] - 1 Week Additional Instructions: GIVEN YOUR RECURRENT URINARY SYMPTOMS AND HISTORY OF SJOGREN'S I AM SUSPICIOUS FOR INTERSTITIAL CYSTITIS. FOLLOW-UP WITH YOUR HYDRODYNAMICIST AND UROLOGY TO FURTHER DISCUSS MANAGEMENT. IN THE MEANTIME WOULD RECOMMEND TRYING SOME SELF- CARE AND BEHAVIOR MODIFICATION INTERVENTIONS TO SEE IF YOUR SYMPTOMS IMPROVE. THESE ARE DETAILED BELOW. WE HAVE SENT YOUR URINE FOR CULTURE TODAY. THE COURSE OF CLINDAMYCIN YOU ARE ON LOOKS TO BE TREATING FOR BV. YOU MAY CONTINUE TO TAKE THIS MEDICATION TO SEE IF IT IMPROVES YOUR SYMPTOMS. INTERSTITIAL CYSTITIS What is bladder pain syndrome? Bladder pain syndrome is a condition that causes people to have bladder pain and urinate often (figure 1). Bladder pain syndrome is often called "BPS" for short. It is also sometimes called "painful bladder syndrome" or "interstitial cystitis." BPS can happen in both men and women, but it is more common in women. Doctors do not know what causes BPS, but some doctors suspect it might be caused by abnormal changes in the lining of the bladder. Sometimes, BPS happens on its own. Other times, it starts after a person has: -An infection of the urinary tract, vagina, or prostate -Surgery on the bladder, pelvis, or back -An injury to the pelvic area or buttocks What are the symptoms of BPS? All people with BPS have bladder pain that gets better after urinating. Other common symptoms include: -Feeling the need to urinate often, during the day and night (even if you don't actually urinate) -Urinating often, during the day and night -Pain in the lower belly or around the area where urine leaves the body Symptoms of BPS are different from person to person and can be mild or severe. People might not have symptoms every day. But they can have "flares," which are times when their symptoms get worse. Some people find that their symptoms get worse at certain times, such as: -After they have certain foods or drinks -During certain times of their monthly cycle (in women) -After having sex or sitting for a long time -During times of stress Is there a test for BPS? There is no one test to check for BPS. But your doctor or nurse will talk with you, do an exam, and probably do a urine test. Depending on the results, your doctor might do other tests, too. For example, some people have a test called "cystoscopy." During cystoscopy, a doctor puts a thin tube with a camera on the end into the opening in the body where urine comes out (called the urethra). Then he or she advances the tube until it reaches the bladder. That way the doctor can look at the inside of the bladder to see if it is abnormal. How is BPS treated? There are different treatments for BPS. Most people need more than one treatment. Different treatments can include: -Bladder training You can train your bladder to urinate less often by holding your urine for longer periods of time. For example, if you feel the need to urinate every 30 minutes, try to wait and urinate every 45 minutes. -Physical therapy Many people with BPS have tight and painful muscles in the lower belly, groin, and buttocks. A physical therapist can teach you exercises to help relax these muscles. -Medicines Doctors can use different medicines to treat BPS. Some medicines help heal the bladder lining, and others can reduce pain. Some medicines come as pills. Others come as liquids and go into the bladder through a tube that is put up the urethra (figure 1). -Surgery A person might have surgery if he or she still has symptoms after trying all other treatments. During surgery, a doctor puts a small device in the lower back that connects to the nerve that goes to the bladder. The device sends electrical signals to the nerve that can stop it from feeling pain. Can BPS flares be prevented? To help prevent flares, you can: -Avoid the foods and drinks that make your symptoms worse. -Avoid activities that make your symptoms worse. -Get treated quickly for bladder infections, which can make BPS symptoms worse. TRY THESE FIRST-LINE INTERVENTIONS: Self-care practices and behavior modification are first line therapies. Failing these, referral to a specialist may be indicated to discuss alternative treatment options including medications and physical therapy. - Application of local heat or cold over the bladder or perineum. - Avoidance of activities or food or beverages that exacerbate symptoms - Common irritants include caffeine, alcohol, artificial sweeteners, hot pepper, and vitamin C-containing foods. Providing a list that indicates foods to try as well as those to limit or avoid is helpful for patients. These foods may be avoided until symptoms resolve, at which time they may be reintroduced. In our experience, most patients with food sensitivities are aware of them and have already excluded these items from their diet. Research about the impact of food on IC is very limited; however, in a very small randomized trial, 30 patients who followed a specially developed diet experienced improvement in IC symptoms at three months and one year compared with those who followed a usual diet. Patients should also be asked to identify and avoid exercises, recreational activities, sexual activities, or body positions that seem to worsen the bladder symptoms. A symptom diary may be useful for some patients to identify such factors. - Fluid management A fluid and voiding diary can provide information to guide recommendations for fluid management; such recommendations should be individualized for each patient. Patients who experience worsening of symptoms with concentrated urine may find increasing fluid intake helpful. Others experience pain with bladder filling and may find that moderate fluid restriction provides some relief. Patients should be instructed to avoid extremes of fluid intake. In most patients, it is not necessary to drink more than 2 L of fluid per day. Those who restrict fluids should strive to maintain a pale yellow color to their urine. - Bladder training with urge suppression. - Billing Disposition and Condition Condition: STABLE Disposition: Home
== END 2018-02-13 08:55 | disposition home or self-care (01) ==
LOC: UCCORT 07:46
DX: N30.90 Cystitis, unspecified without hematuria (principal)
CPT/HCPCS: 87086; 87798; 99211; G0463

== ENCOUNTER 2018-06-16 19:50 | Emergency (ER) | payer BC ==
--- OUTSIDE RECORDS SUMMARY | 2018-06-16 20:23 | XMS REPORT ---
:1980 External Reference #:[id number] Author Organization [facility] 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 Active Family History Date Family Member(s) Problem(s) Comments Father Good public relations writer syndrome Father due to Aneurysm () Father Hypertension Mother Hypothyroidism Mother Hypertension Social History Type Date Description Comments Lives With Boyfriend ETOH Use Uses Alcohol Daily Smoking Patient denies history of smoking Recreational Drug Use Denies Drug Use Daily Caffeine ice tea once and away Allergies, Adverse Reactions, Alerts Date Description Reaction Status Severity Comments 02/17/2018 NKDA active Medications Medication Date Status Form Strength Qnty SIG Indications Ordering Provider Uribel 06/08/ Active Capsules 118mg 6caps 1 tab by Michelle, 2018 mouth up Mahmoud, to four M.D. times a day Phenazopyridine 05/04/ Active Tablets 100mg 30tabs 1 tab by N30.10 Michelle, HCL 2017 mouth Mahmoud, three M.D. times a day as need for bladder burning and pain Elmiron 04/13/ Active Capsules 100mg 120cap 1 tab by N30.10 Michelle, 2017 s mouth [facility], three M.D. times a day [id number] / Active Chewtabs 1mg 1 tab by Unknown 0000 mouth every day wc Vitamin D3 / Active Tab 1 q day Unknown Gummies Adult 0000 Iron High-Potency / Active Tablets 650mg 1 by Unknown 0000 mouth every day Gabapentin / Active Capsules 100mg 1 by Unknown 0000 mouth 1 times a day Meloxicam / Active Tablets 15mg Once a Kvng, day as MD Temi needed Vesicare / Active Tablets 10mg 30tabs 1 by Michelle, 0000 mouth [facility], every day M.D. Ciprofloxacin HCL 04/13/ Hx Tablets 500mg 1tabs Given Michelle, 2017 - once in [facility], 04/14/ office M.D. 2018 for cysto Myrbetriq 04/06/ Hx Tablets ER 50mg 30tabs 1 by N32.81 Michelle, 2017 [facility] day M.D. 2018 Myrbetriq 03/25/ Hx Tablets ER 50mg 30tabs 1 by Michelle, 2017 - [facility], 04/06/ every day M.D. 2018 Doxycycline 02/19/ Hx Capsules 100mg 30caps 1 tab by Michelle Monohydrate 2017 - [facility], 04/06/ twice a M.D. 2017 day, limit skin exposure to sun Urin DS 02/19/ Hx Tablets 30tabs 1 tab by Michelle 2017 - mouth Mahmoud, 04/13/ twice a M.D. 2017 day as needed Uribel 02/17/ Hx Capsules 118mg 20caps 1 tab by N30.10 Michelle, 2017 - [facility], 04[facility]/ to four M.D. 2018 times a day Urin DS / Hx Tablets 5tabs 1 tab by Unknown 0000 - mouth 05/04/ twice a 2017 day as needed Vital Signs Date Vital Result Comment 06/08/2018 BP Systolic 105 mmHg BP Diastolic 69 mmHg Body Temperature 98.6 F Heart Rate 64 /min Respiratory Rate 16 /min Height 59 inches 4'11" Weight 153.25 lb BMI (Body Mass Index) 30.9 kg/m2 BSA (Body Surface Area) 1.65 m2 Bailey body weight in kilograms 45 O2 % BldC Oximetry 96 % Pain Level 7 Low [facility]/04[facility]2018 BP Systolic 121 mmHg BP Diastolic 83 mmHg Body Temperature 98.2 F Heart Rate 63 /min Respiratory Rate 14 /min Height 59 inches 4'11" Weight 153.12 lb BMI (Body Mass Index) 30.9 kg/m2 BSA (Body Surface Area) 1.65 m2 Bailey body weight in kilograms 45 O2 % BldC Oximetry 96 % Pain Level 0 says just pressure 04/13/2018 BP Systolic 113 mmHg BP Diastolic 77 mmHg Body Temperature 98.3 F Heart Rate 65 /min Respiratory Rate 16 /min Height 59 inches 4'11" Weight 152.00 lb BMI (Body Mass Index) 30.7 kg/m2 BSA (Body Surface Area) 1.64 m2 Bailey body weight in kilograms 45 O2 % BldC Oximetry 98 % Pain Level 10 frequency and pressure 04/06/2018 BP Systolic 106 mmHg BP Diastolic 57 mmHg Body Temperature 98.2 F Heart Rate 63 /min Respiratory Rate 16 /min Height 59 inches 4'11" Bailey body weight in kilograms 45 O2 % BldC Oximetry 100 % Pain Level 0 02/17/2018 BP Systolic 111 mmHg BP Diastolic 65 mmHg Body Temperature 97.9 F Heart Rate 74 /min Respiratory Rate 18 /min Height 59 inches 4'11" Weight 154.00 lb BMI (Body Mass Index) 31.1 kg/m2 BSA (Body Surface Area) 1.65 m2 Bailey body weight in kilograms 45 O2 % BldC Oximetry 99 % Pain Level 0 Results Test Date Test Result H/L Range Note Urine Dipstick 06/08/2018 Ua Color [place] Yellow Ua Clarity Clear Clear Ua Leuko 70 Jeffrey/uL High Negative Ua Nitrite Positive Negative Ua Urobilinogen 70 umol/L High 0.2 - 1.0 E.U./dL Ua Protein Negative Negative Ua PH 6.0 Low 6.5-7.5 Ua Blood Negative Negative Ua Specific [place] 1.020 1.010-1.030 Ua Ketones Negative Negative Ua Bilirubin 17 umol/L High Negative Ua Glucose Negative Negative Urine Dipstick 05/04/2018 Ua Color yellow Yellow Ua Clarity clear Clear Ua Leuko neg Negative Ua Nitrite neg Negative Ua Urobilinogen 3.5 High 0.2 - 1.0 E.U./dL Ua Protein neg Negative Ua PH 6.0 Low 6.5-7.5 Ua Blood neg Negative Ua Specific [place] 1.025 1.010-1.030 Ua Ketones neg Negative Ua Bilirubin neg Negative Ua Glucose neg Negative Urine Dipstick 04/13/2018 Ua Color Yellow/Blue Yellow Ua Clarity Clear Clear Ua Leuko Negative Negative Ua Nitrite Negative Negative Ua Urobilinogen 0.2 0.2 - 1.0 E.U./dL Ua Protein Negative Negative Ua PH 6.0 Low 6.5-7.5 Ua Blood Negative Negative Ua Specific [place] 1.020 1.010-1.030 Ua Ketones Negative Negative Ua Bilirubin Negative Negative Ua Glucose Negative Negative Ua RFX Micro & Culture II 02/17/2018 Urine Color ORANGE Yellow 1 Urine Clarity CLOUDY Clear 1 Urine Glucose - Dipstick NEGATIVE mg/dL Negative 1 Urine Bilirubin - Dipstick NEGATIVE Negative 1 Urine Ketone TRACE mg/dL High Negative 1 Urine Specific [place] >=1.030 1.010-1.030 1 Urine Blood NEGATIVE Negative 1 Urine PH 6.0 Low 6.5-7.5 1 Urine Protein - Dipstick NEGATIVE mg/dL Negative 1 Urine Urobilinogen - Dipstick 0.2 E.U./dL 0.2-1.0 1 Urine Nitrite - Dipstick NEGATIVE Negative 1 Urine Leuk Esterase NEGATIVE Negative 1 Source: URINE, CLEAN CAT <SEE NOTE> 1, 2 Urine Culture 02/17/2018 Urine Culture URETHRAL GINNY 1 Quantity 10,000 - 50,000 <SEE NOTE> 1, 3 1 N30.10 2 URINE, CLEAN CATCH 3 10,000 - 50,000 CFU/mL Procedures Date CPT Code Description Status 05/04/2018 20625 Measurement Post Voiding Residual Urine By Completed Ultrasound,Non-Imaging 04/13/2018 64249 Cystoscopy Completed Encounters Type Date Location Provider CPT E/M Dx Office Visit 06/08/2018 3:15p Urology Em Martinez M.D. [id number] N30.10 Office Visit 05/04/2018 3:30p Urology Em Martinez M.D. 74787 N30.10 N32.81 Office Visit 04/13/2018 2:30p Urology Em Martinez M.D. 47521 N30.10 N32.81 Office Visit 04/06/2018 11:00a Urology Em Martinez M.D. 54714 N30.10 N32.81 Office Visit 02/17/2018 8:30a Urology Em Martinez M.D. 90070 N30.10 Plan of Care Future Appointment(s):08/04/2018 2:45 pm - Em Martinez M.D. at [id number]/2017 - Em Martinez M.D.N30.10 Interstitial cystitis (chronic) without hematuriaComments:Discussed with patients increasing her Elmiron or considering 3rd line therapy such as bladder instillations or hydro-distention. Pt is agreeable for hydrodistension. Discussed risk of bladder rupture,bleeding and UTI as well as worsening symptoms initially. Will check her Urine culture today.
[2018-06-16 20:33] VITALS: BP 114/76
[2018-06-16] MEDS ORDERED: Silver Sulfadiazine 1%* 20 GM TOPICAL ONE (20:44)
[2018-06-16] MEDS ORDERED: Ibuprofen ADULT LIQ* 600 MG/30 ML UDC PO ONE (20:44)
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
== END 2018-06-16 21:11 | disposition home or self-care (01) ==
LOC: UCCORT 19:50
DX: T23.231A Burn of second degree of multiple right fingers (nail), not including thumb, initial encounter (principal); T31.0 Burns involving less than 10% of body surface; X19.XXXA Contact with other heat and hot substances, initial encounter; Y93.G3 Activity, cooking and baking; Y92.9 Unspecified place or not applicable
CPT/HCPCS: 99212; A9270-GY; G0463

== ENCOUNTER 2019-02-09 15:06 | Emergency (ER) | payer BC ==
--- OUTSIDE RECORDS SUMMARY | 2019-02-09 15:18 | XMS REPORT | Continuity of Care Document ---
:1980 External Reference #:[id number] Author Name Indra Lares MD Address [address] [place] [id number] Care Team Providers Name Role Phone Temi Calderon MD Care Team Information Audiovisual Tech Unavailable Temi Calderon MD Primary Care Physician Unavailable Payers Date Identification Numbers Payment Provider Subscriber Policy Number: [id number] [employer] Eneida Garcia PayID: [id number] [address] [address] [place] [address] Problems Active Problems Provider Date Bladder muscle dysfunction - overactive Em Martinez M.D. Onset: 2017 Chronic interstitial cystitis Em Martinez M.D. 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 Working Hand Dominance Right-handed Tobacco Use Start: Unknown Never Smoked Cigarettes Smoking Status Reviewed: 01/27/19 Never Smoked Cigarettes ETOH Use Occasionally consumes alcohol Tobacco Use Start: Unknown Patient denies history of smoking Recreational Drug Use Denies Drug Use Allergies, Adverse Reactions, Alerts Description No Known Drug Allergies Medications Active Medications SIG Qnty Indications Ordering Date Provider Diclofenac Potassium 1 by mouth 90tabs M16.0 Indra Lares MD 01/27/2019 50mg every day Tablets Uribel 1 tab by mouth 6caps Em Martinez, 06/08/2018 118mg Capsules up to four M.D. times a day Phenazopyridine HCL 1 tab by mouth 30tabs N30.10 Em Martinez, 2017 100mg three times a M.D. Tablets day as need for bladder burning and pain Elmiron 1 tab by mouth 120caps N30.10 Em Martinez, 04/13/2018 100mg Capsules three times a M.D. day Vesicare 1 by mouth 90tabs Em Martinez, 10mg Tablets every day M.D. Meloxicam Once a day as Temi Calderon, 15mg Tablets needed MD Gabapentin 1 by mouth 1 Unknown 100mg Capsules times a day Iron High-Potency 1 by mouth Unknown 650mg every day Tablets Vitamin D3 Gummies 1 q day Unknown Adult Tab [id number]-Bukjnj 1 tab by mouth Unknown 1mg Chewtabs every day wc History Medications Ciprofloxacin HCL 1 by mouth twice 10tabs Em Martinez, 06/11/2018 - 500mg a day M.D. 06/30/2018 Tablets Ciprofloxacin HCL Given once in 1tabs Em Martinez, 04/13/2018 - 500mg office for cysto M.D. 04/14/2018 Tablets Myrbetriq 1 by mouth every 30tabs N32.81 Em Martinez, 04/06/2018 - 50mg Tablets day M.D. 04/13/2018 ER 24HR Myrbetriq 1 by mouth every 30tabs Em Martinez, 03/25/2018 - 50mg Tablets day M.D. 04/06/2018 ER 24HR Doxycycline 1 tab by mouth 30caps Em Mratinez, 02/19/2018 - Monohydrate twice a day, M.D. 04/06/2018 100mg limit skin Capsules exposure to sun Urin DS 1 tab by mouth 30tabs Em Martinez, 02/19/2018 - Tablets twice a day as M.D. 04/13/2018 needed Uribel 1 tab by mouth 20caps N30.10 Em Martinez, 02/17/2018 - 118mg Capsules up to four times M.D. 04/06/2018 a day Urin DS 1 tab by mouth 5tabs Unknown - Tablets twice a day as 05/04/2018 needed Vital Signs Date Vital Result Comment 01/27/2019 3:04pm BP Systolic Sitting Right Arm 113 mmHg BP Diastolic Sitting Right Arm 76 mmHg Body Temperature 97.6 F Heart Rate 74 /min Height 59.5 inches 4'11.50" Weight 156.00 lb BMI (Body Mass Index) 31.0 kg/m2 BSA (Body Surface Area) 1.67 m2 Broad [place] body weight in kilograms 45 kg O2 % BldC Oximetry 97 % 01/05/2019 2:49pm BP Systolic 117 mmHg BP Diastolic 76 mmHg Body Temperature 97.9 F Heart Rate 8 /min Respiratory Rate 16 /min Height 59 inches 4'11" Weight 158.12 lb BMI (Body Mass Index) 31.9 kg/m2 BSA (Body Surface Area) 1.67 m2 [place] body weight in kilograms 45 kg O2 % BldC Oximetry 96 % Pain Level 7 PRessure 06/30/2018 3:31pm BP Systolic 119 mmHg BP Diastolic 88 mmHg Body Temperature 98.4 F Heart Rate 61 /min Respiratory Rate 14 /min Height 59 inches 4'11" Weight 155.00 lb BMI (Body Mass Index) 31.3 kg/m2 BSA (Body Surface Area) 1.66 m2 [place] body weight in kilograms 45 kg O2 % BldC Oximetry 98 % Pain Level 0 06/08/2018 3:24pm BP Systolic 105 mmHg BP Diastolic 69 mmHg Body Temperature 98.6 F Heart Rate 64 /min Respiratory Rate 16 /min Height 59 inches 4'11" Weight 153.25 lb BMI (Body Mass Index) 30.9 kg/m2 BSA (Body Surface Area) 1.65 m2 [place] body weight in kilograms 45 kg O2 % BldC Oximetry 96 % Pain Level 7 Low abd and pressure traveling to [facility] area 05/04/2018 2:46pm BP Systolic 121 mmHg BP Diastolic 83 mmHg Body Temperature 98.2 F Heart Rate 63 /min Respiratory Rate 14 /min Height 59 inches 4'11" Weight 153.12 lb BMI (Body Mass Index) 30.9 kg/m2 BSA (Body Surface Area) 1.65 m2 [place] body weight in kilograms 45 kg O2 % BldC Oximetry 96 % Pain Level 0 says just pressure 04/13/2018 2:38pm BP Systolic 113 mmHg BP Diastolic 77 mmHg Body Temperature 98.3 F Heart Rate 65 /min Respiratory Rate 16 /min Height 59 inches 4'11" Weight 152.00 lb BMI (Body Mass Index) 30.7 kg/m2 BSA (Body Surface Area) 1.64 m2 [place] body weight in kilograms 45 kg O2 % BldC Oximetry 98 % Pain Level 10 frequency and pressure 04/06/2018 11:01am BP Systolic 106 mmHg BP Diastolic 57 mmHg Body Temperature 98.2 F Heart Rate 63 /min Respiratory Rate 16 /min Height 59 inches 4'11" Broad [place] body weight in kilograms 45 kg O2 % BldC Oximetry 100 % Pain Level 0 02/17/2018 8:21am BP Systolic 111 mmHg BP Diastolic 65 mmHg Body Temperature 97.9 F Heart Rate 74 /min Respiratory Rate 18 /min Height 59 inches 4'11" Weight 154.00 lb BMI (Body Mass Index) 31.1 kg/m2 BSA (Body Surface Area) 1.65 m2 [place] body weight in kilograms 45 kg O2 % BldC Oximetry 99 % Pain Level 0 10/07/2017 4:31pm Height 59.5 inches 10/07/2017 4:33pm Heart Rate 81 /min Respiratory Rate 14 /min Height 59.5 inches Weight 150.00 lb BMI (Body Mass Index) 29.8 kg/m2 09/18/2017 12:09pm Body Temperature 97.8 F Heart Rate 78 /min Respiratory Rate 16 /min Results Test Date Facility Test Result H/L Range Note Xray 01/27/2019 [facility] - Orthopedic RMP, Hip, LT, Ap & < pending> [address] [place] [address] Pelvis [phone] RMP, Hip, RT, Ap & Lateral Including Pelvis <pending> Urine Dipstick 01/05/2019 [facility] Ua Color Dark Yellow Yellow Ua Clarity Clear Clear Ua Leuko Negative Negative Ua Nitrite Negative Negative Ua Urobilinogen 0.2 0.2 - 1.0 E.U./dL Ua Protein Negative Negative Ua PH 7.0 6.5-7.5 Ua Blood 200 High Negative Ua Specific [place] 1.015 1.010-1.030 Ua Ketones Negative Negative Ua Bilirubin Negative Negative Ua Glucose Negative Negative Urine 01/04/2019 [facility] Urine ESCHERICHIA Abnormal 1, [address] [place] [address] [phone] Quantity 50,000 - 100,000 <SEE NOTE> 3 [id number] 01/04/2019 [facility] Nitrofurantoin <=[address] [place] [address] [phone] Trimethoprim/Sulfamethoxazole <=20 S Ampicillin <=2 S Cefazolin <=4 S Ampicillin/Sulbactam <=2 S Ciprofloxacin <=0.25 S Piperacillin/Tazobactam <=4 S Ceftazidime <=1 S Ceftriaxone <=1 S Cefepime <=1 S Levofloxacin <=0.12 S Imipenem <=0.25 S Gentamicin <=1 S Tobramycin <=1 S Urine Dipstick 06/30/2018 [facility] Ua Color yellow Yellow Ua Clarity clear Clear Ua Leuko neg Negative Ua Nitrite neg Negative Ua Urobilinogen 3.5 High 0.2 - 1.0 E.U./dL Ua Protein neg Negative Ua PH 6.5 6.5-7.5 Ua Blood neg Negative Ua Specific [place] 1.020 1.010-1.030 Ua Ketones neg Negative Ua Bilirubin neg Negative Ua Glucose neg Negative Urine Culture 06/08/2018 [facility] Urine Culture ESCHERICHIA COLI Abnormal [address] [place] [address] [phone] Quantity 50,000 - 100,000 <SEE NOTE> 5 Urine Culture URETHRAL GINNY Quantity 10,000 - 100,000 <SEE NOTE> 6 Escherichia Coli 06/08/2018 [facility] Nitrofurantoin <=[address] [place] [address] [phone] Trimethoprim/Sulfamethoxazole <=20 S Ampicillin <=2 S Cefazolin <=4 S Ampicillin/Sulbactam <=2 S Ciprofloxacin <=0.25 S Piperacillin/Tazobactam <=4 S Ceftazidime <=1 S Ceftriaxone <=1 S Cefepime <=1 S Levofloxacin <=0.12 S Imipenem <=0.25 S Gentamicin <=1 S Tobramycin <=1 S Urine Dipstick 06/08/2018 [facility] Ua Color [place] Yellow Ua Clarity Clear Clear Ua Leuko 70 [place]/uL High Negative Ua Nitrite Positive Negative Ua Urobilinogen 70 umol/L High 0.2 - 1.0 E.U./dL Ua Protein Negative Negative Ua PH 6.0 Low 6.5-7.5 Ua Blood Negative Negative Ua Specific [place] 1.020 1.010-1.030 Ua Ketones Negative Negative Ua Bilirubin 17 umol/L High Negative Ua Glucose Negative Negative Urine Dipstick 05/04/2018 [facility] Ua Color yellow Yellow Ua Clarity clear Clear Ua Leuko neg Negative Ua Nitrite neg Negative Ua Urobilinogen 3.5 High 0.2 - 1.0 E.U./dL Ua Protein neg Negative Ua PH 6.0 Low 6.5-7.5 Ua Blood neg Negative Ua Specific [place] 1.025 1.010-1.030 Ua Ketones neg Negative Ua Bilirubin neg Negative Ua Glucose neg Negative Urine Dipstick 04/13/2018 [facility] Ua Color Yellow/Blue Yellow Ua Clarity Clear Clear Ua Leuko Negative Negative Ua Nitrite Negative Negative Ua Urobilinogen 0.2 0.2 - 1.0 E.U./dL Ua Protein Negative Negative Ua PH 6.0 Low 6.5-7.5 Ua Blood Negative Negative Ua Specific [place] 1.020 1.010-1.030 Ua Ketones Negative Negative Ua Bilirubin Negative Negative Ua Glucose Negative Negative Ua RFX Micro & Culture 02/17/2018 [facility] Urine Color ORANGE Yellow [address] [place] [address] [phone] Urine Clarity CLOUDY Clear Urine Glucose - Dipstick NEGATIVE mg/dL Negative Urine Bilirubin - Dipstick NEGATIVE Negative Urine Ketone TRACE mg/dL High Negative Urine Specific [place] >=1.030 N 1.010-1.030 Urine Blood NEGATIVE Negative Urine PH 6.0 Low 6.5-7.5 Urine Protein - Dipstick NEGATIVE mg/dL Negative Urine Urobilinogen - Dipstick 0.2 E.U./dL N 0.2-1.0 Urine Nitrite - Dipstick NEGATIVE Negative Urine Leuk Esterase NEGATIVE Negative Source: URINE, CLEAN CAT <SEE NOTE> 8 Urine Culture 02/17/2018 [facility] Urine Culture URETHRAL GINNY [address] [place] [address] [phone] Quantity 10,000 - 50,000 <SEE NOTE> 9 1 [id number] 2 ESCHERICHIA COLI 3 50,000 - 100,000 CFU/mL 4 ESCHERICHIA COLI 5 50,000 - 100,000 CFU/mL 6 10,000 - 100,000 CFU/mL 7 N30.10 8 URINE, CLEAN CATCH 9 10,000 - 50,000 CFU/mL Procedures Date Code Description Status 01/27/2019 33895 Radiologic Exam Hip Unilateral With Pelvis 2-3 Views Completed 01/05/2019 26019 Measurement Post Voiding Residual Urine By Completed Ultrasound,Non-Imaging 01/04/2019 32129 Cystourethroscopy W/ Dilation Of Bladder General Completed Anesthesia 06/30/2018 50083 Measurement Post Voiding Residual Urine By Completed Ultrasound,Non-Imaging 06/10/2018 98796 Cystourethroscopy W/ Dilation Of Bladder General Completed Anesthesia 05/04/2018 56594 Measurement Post Voiding Residual Urine By Completed Ultrasound,Non-Imaging 04/13/2018 75095 Cystoscopy Completed Encounters Type Date Location Provider Dx Diagnosis Office Visit 01/05/2019 Urology Em Martinez, N30.10 Interstitial cystitis 2:45p M.D. (chronic) without hematuria Office Visit 06/30/2018 Urology Em Martinez N30.10 Interstitial cystitis 3:15p M.D. (chronic) without hematuria N32.81 Overactive bladder Office Visit 06/08/2018 3:15p Urology Em Martinez N30.10 Interstitial cystitis M.D. (chronic) without hematuria Office Visit 05/04/2018 3:30p Urology Em Martinez N30.10 Interstitial cystitis M.D. (chronic) without hematuria N32.81 Overactive bladder Office Visit 04/13/2018 2:30p Urology Em Martinez N30.10 Interstitial cystitis M.D. (chronic) without hematuria N32.81 Overactive bladder Office Visit 04/06/2018 11:00a Urology Em Martinez N30.10 Interstitial cystitis M.D. (chronic) without hematuria N32.81 Overactive bladder Office Visit 02/17/2018 8:30a Urology Em Martinez N30.10 Interstitial cystitis M.D. (chronic) without hematuria Plan of Treatment Future Appointment(s):02/16/2019 3:15 pm - Mychal Mora PA at Urology
[2019-02-09 15:28] VITALS: BP 110/75
--- NOTE | 2019-02-09 15:45 | UC ---
Throat Pain/Nasal Juarez HPI - HPI Summary HPI Summary: 38-year-old woman comes in with a chief complaint of 7 days of upper respiratory tract infection symptoms. She has a diffuse headache. She reports chills and believes she's had a fever. No fever in clinic today. Also has been having pain in her neck and the lateral aspects but not midline. She has had some rhinorrhea. Has had some chest congestion but no sputum production no shortness of breath she does not have a history of asthma. She's tried some ibuprofen which does help with symptoms some. She also has a cough. - History of Current Complaint Chief Complaint: UCGeneralIllness Stated Complaint: CHEST CONGESTION, SORE THROAT Time Seen by Provider: 02/09/19 15:34 Hx Last Menstrual Period: 2007 Pain Intensity: 8 - Allergies/Home Medications Allergies/Adverse Reactions: Allergies Allergy/AdvReac Type Severity Reaction Status Date / Time No Known Allergies Allergy Verified 02/09/19 15:29 Home Medications: Home Medications Medication For Ra 02/09/19 [History] PMH/Surg Hx/FS Hx/Imm Hx Previously Healthy: Yes Other History Of: Negative For: HIV, Hepatitis B, Hepatitis C, Anticoagulant Therapy - Surgical History Surgical History: Yes Surgery Procedure, Year, and Place: Gastric Bypass, 2013, [facility]; Partial Hysterectomy, 2007, [facility]; Lumbar Discectomy, 2007, [facility]; , 2002 , [facility]. 06/10/18 bladder sx, [place], bladder distention 2018 - Family History Known Family History: Positive: Cardiac Disease, Hypertension, Diabetes - Social History Alcohol Use: Rare Alcohol Amount: FEW DRINKS/YR Substance Use Type: None Smoking Status (MU): Never Smoked Tobacco Have You Smoked in the Last Year: No - Immunization History Most Recent Influenza Vaccination: 06/04/16 Most Recent Tetanus Shot: 2013 Most Recent Pneumonia Vaccination: NEVER Vaccination Up to Date: Yes Review of Systems All Other Systems Reviewed And Are Negative: Yes Constitutional: Positive: Fever, Chills Skin: Positive: Negative Eyes: Positive: Negative. Negative: Photophobia ENT: Positive: Nasal Discharge, Sinus Congestion Respiratory: Positive: Cough Cardiovascular: Positive: Negative Gastrointestinal: Positive: Negative Motor: Positive: Negative Neurovascular: Positive: Negative Musculoskeletal: Positive: Myalgia Neurological: Positive: Headache Psychological: Positive: Negative Is Patient Immunocompromised?: No Physical Exam Triage Information Reviewed: Yes Appearance: No Pain Distress, Well-Nourished, Ill-Appearing - MILD Vital Signs: Initial Vital Signs Temp 99.2 F 02/09/19 15:22 Pulse 83 02/09/19 15:22 Resp 16 02/09/19 15:22 BP 110/75 02/09/19 15:22 Pulse Ox 100 02/09/19 15:22 Vital Signs Reviewed: Yes Eye Exam: Normal Eyes: Positive: Conjunctiva Clear, Other: - PERRLA/EOMI ENT: Positive: Pharyngeal erythema, Nasal congestion, Nasal drainage, TMs normal Neck: Positive: Supple, Other: - NON TENDER MIDLINE. NECK PAIN IS POSTERIOR/ LATERAL B/L. Respiratory: Positive: Lungs clear, Normal breath sounds, No respiratory distress Cardiovascular: Positive: RRR Musculoskeletal Exam: Normal Musculoskeletal: Positive: Strength Intact, ROM Intact Neurological Exam: Normal Neurological: Positive: Alert, Muscle Tone Normal Psychological Exam: Normal Psychological: Positive: Normal Response To Family, Age Appropriate Behavior Skin Exam: Normal Throat Pain/Nasal Course/Dx - Course Course Of Treatment: DISCUSSED VIRAL VERSES BACTERIAL INFECTION AND THE ROLE OF ANTIBIOTICS. THE PATIENT PREFERS TO BE ON ANTIBIOTICS AT THIS TIME. Patient has a headache and neck pain and feels ill with upper respiratory tract infection symptoms. The neck pain is on the lateral aspect and it is not midline. The pain of the neck does not continue down into the thoracic and lumbar area. We discussed the signs and symptoms of meningitis. By history and clinically the patient at this time does not have meningitis. After discussing the signs and symptoms of meningitis and did let the patient know that if she did not improve or worsens she needs to get reevaluated again right away. - Differential Dx/Diagnosis Provider Diagnosis: Upper respiratory infection Discharge - Sign-Out/Discharge Documenting (check all that apply): Patient Departure All imaging exams completed and their final reports reviewed: No Studies - Discharge Plan Condition: Stable Disposition: HOME Prescriptions: Amoxicillin/Clavulanate TAB* [Augmentin TAB 875*] 875 mg PO BID #20 tab Benzonatate CAP* [Tessalon 100 MG CAP*] 100 mg PO TID PRN #20 cap PRN Reason: Cough Patient Education Materials: Upper Respiratory Infection (ED) Forms: *Work Release Referrals: Temi Calderon MD [Primary Care Provider] - Additional Instructions: FOLLOW UP WITH YOUR DOCTOR IF NOT COMPLETELY IMPROVED. GET RECHECKED SOONER IF YOUR CONDITION WORSENS; CONTINUED OR WORSE HEADACHE AND NECK PAIN, BACK PAIN, SIGNS OF MENINGITIS, YOU FEEL ILL OR ANY QUESTIONS OR CONCERNS. - Billing Disposition and Condition Condition: STABLE Disposition: Home
== END 2019-02-09 15:53 | disposition home or self-care (01) ==
LOC: UCCORT 15:06
DX: J06.9 Acute upper respiratory infection, unspecified (principal); M54.2 Cervicalgia; R05 Cough
CPT/HCPCS: 99212; G0463

== ENCOUNTER 2019-02-14 19:09 | Emergency (ER) | payer BC ==
[2019-02-14 19:24] VITALS: BP 117/72
--- NOTE | 2019-02-14 19:43 | UC ---
Lower Extremity/Ankle HPI - HPI Summary HPI Summary: 38-year-old female presents with pain and bruising to her left great toe and foot. States she caught her foot on the edge of a step as she was ascending the stair causing her to trip. She has been able to bear weight on the foot with pain. Denies any numbness or tingling. - History of Current Complaint Chief Complaint: UCLowerExtremity Stated Complaint: LEFT BIG TOE INJURY Time Seen by Provider: 02/14/19 19:31 Hx Obtained From: Patient Hx Last Menstrual Period: 2007 Pain Intensity: 10 - Allergies/Home Medications Allergies/Adverse Reactions: Allergies Allergy/AdvReac Type Severity Reaction Status Date / Time No Known Allergies Allergy Verified 02/14/19 19:24 Home Medications: Home Medications Cholecalciferol TAB* [Vitamin D TAB*] 1,000 unit PO DAILY 02/14/19 [History Confirmed 02/14/19] PMH/Surg Hx/FS Hx/Imm Hx Previously Healthy: Yes - Denies significant PMH Other History Of: Negative For: HIV, Hepatitis B, Hepatitis C, Anticoagulant Therapy - Surgical History Surgical History: Yes Surgery Procedure, Year, and Place: Gastric Bypass, 2013, [facility]; Partial Hysterectomy, 2007, [facility]; Lumbar Discectomy, 2007, [facility]; , 2002 , [facility]. 06/10/18 bladder sx, [place], bladder distention 2018 - Family History Known Family History: Positive: Cardiac Disease, Hypertension, Diabetes - Social History Occupation: Employed Full-time Lives: With Family Alcohol Use: Occasionally Alcohol Amount: FEW DRINKS/YR Substance Use Type: None Smoking Status (MU): Never Smoked Tobacco Have You Smoked in the Last Year: No - Immunization History Most Recent Influenza Vaccination: 06/04/16 Most Recent Tetanus Shot: 2013 Most Recent Pneumonia Vaccination: NEVER Vaccination Up to Date: Yes Review of Systems All Other Systems Reviewed And Are Negative: Yes Constitutional: Positive: Negative Skin: Positive: Bruising Respiratory: Positive: Negative Cardiovascular: Positive: Negative Gastrointestinal: Positive: Negative Genitourinary: Positive: Negative Motor: Negative: Weakness Neurovascular: Negative: Decreased Sensation Musculoskeletal: Positive: Other: - See HPI Neurological: Positive: Negative Is Patient Immunocompromised?: No Physical Exam - Summary Physical Exam Summary: GENERAL APPEARANCE: Well developed, well nourished, alert and cooperative, and appears to be in no acute distress. CARDIAC: Normal S1 and S2. No S3, S4 or murmurs. Rhythm is regular. There is no peripheral edema, cyanosis or pallor. Extremities are warm and well perfused. Capillary refill is less than 2 seconds. Peripheral pulses intact. LUNGS: Clear to auscultation without rales, rhonchi, wheezing or diminished breath sounds. ABDOMEN: Positive bowel sounds. Soft, nondistended, nontender. No guarding or rebound. No masses or hepatosplenomegally. MUSKULOSKELETAL: Normal muscular development. Limping gait. EXTREMITIES: Tenderness over the proximal phalanx of the left great toe as well as to the distal 1st and 2nd metatarsals with ecchymosis. No gross deformity noted. Circulation and sensation intact. SKIN: Skin normal color, texture and turgor with no lesions or eruptions. Triage Information Reviewed: Yes Vital Signs: Initial Vital Signs Temp 98.3 F 02/14/19 19:21 Pulse 67 02/14/19 19:21 Resp 16 02/14/19 19:21 BP 117/72 02/14/19 19:21 Pulse Ox 100 02/14/19 19:21 Vital Signs Reviewed: Yes Diagnostics - Radiology No standard instances Radiology Interpretation Completed By: ED Physician - No fracute or dislocation Lower Extremity Course/Dx - Course Course Of Treatment: 38-year-old female presents with pain and bruising to her left great toe and foot. States she caught her foot on the edge of a step as she was ascending the stair causing her to trip. She has been able to bear weight on the foot with pain. Denies any numbness or tingling. Patient had tenderness over the proximal phalanx of the left great toe as well as to the distal 1st and 2nd metatarsals with ecchymosis. No gross deformity noted. Circulation and sensation intact. My preliminary reading of the x-ray was no acute fracture or dislocation. These results were reviewed with the patient. She was placed in a postop shoe by the RN. Circulation and sensation were intact pre- and post- application. Recommending conservative treatment for a left foot sprain and contusion including [id number] analgesics and RICE. She is to follow-up with orthopedic surgery in 7 days if symptoms are not improving. Anticipatory guidance and warning symptoms were reviewed with the patient. Verbalizes understanding and agrees with plan of care. - Differential Dx/Diagnosis Differential Diagnosis/HQI/PQRI: Contusion, Fracture (Closed), Sprain Provider Diagnosis: Contusion of left foot including toes, Sprain of left foot Discharge - Sign-Out/Discharge Documenting (check all that apply): Patient Departure All imaging exams completed and their final reports reviewed: No - Discharge Plan Condition: Stable Disposition: HOME Patient Education Materials: Contusion in Adults (ED), Foot Sprain (ED) Referrals: Temi Calderon MD [Primary Care Provider] - Zeb Zamorano MD [Medical Doctor] - Additional Instructions: The x-ray performed in the clinic today showed no evidence of a fracture. The x- ray will be reviewed by the radiologist tomorrow and we will contact you if they see anything that will change your plan of care. Rest the foot as much as possible. You may walk and bear weight as tolerated. Use the post-op shoe that was applied in the clinic until you are pain free. Apply ice to the affected area for 15-20 minutes at least 4 times a day to help with the pain and swelling. Elevate the foot to help reduce swelling. Take acetaminophen (Tylenol) or ibuprofen (Advil, Motrin) according to directions as needed for pain. Follow up with orthopedic surgery in 7 days if symptoms do not improve. Seek immediate medical attention if you have severe pain not managed with pain medication, you are unable to walk or bear any weight, develop numbness or tingling in the foot or toes, or have any worsening of symptoms. - Billing Disposition and Condition Condition: STABLE Disposition: Home
--- NOTE | 2019-02-15 20:06 | UC ---
- Progress Note Progress Note: Radiologist reading of left foot x-ray from February 14, 2019 comes back as no fracture. The provider interpretation same date is also no fracture therefore there is no discrepancy. Course/Dx - Diagnoses Provider Diagnoses: Contusion of left foot including toes, Sprain of left foot Discharge - Sign-Out/Discharge Documenting (check all that apply): Patient Departure All imaging exams completed and their final reports reviewed: Yes - Discharge Plan Condition: Stable Disposition: HOME Patient Education Materials: Contusion in Adults (ED), Foot Sprain (ED) Referrals: Zeb Zamorano MD [Medical Doctor] - Temi Calderon MD [Primary Care Provider] - Additional Instructions: The x-ray performed in the clinic today showed no evidence of a fracture. The x- ray will be reviewed by the radiologist tomorrow and we will contact you if they see anything that will change your plan of care. Rest the foot as much as possible. You may walk and bear weight as tolerated. Use the post-op shoe that was applied in the clinic until you are pain free. Apply ice to the affected area for 15-20 minutes at least 4 times a day to help with the pain and swelling. Elevate the foot to help reduce swelling. Take acetaminophen (Tylenol) or ibuprofen (Advil, Motrin) according to directions as needed for pain. Follow up with orthopedic surgery in 7 days if symptoms do not improve. Seek immediate medical attention if you have severe pain not managed with pain medication, you are unable to walk or bear any weight, develop numbness or tingling in the foot or toes, or have any worsening of symptoms. - Billing Disposition and Condition Condition: STABLE Disposition: Home
== END 2019-02-14 20:14 | disposition home or self-care (01) ==
LOC: UCCORT 19:09
DX: S90.112A Contusion of left great toe without damage to nail, initial encounter (principal); S93.602A Unspecified sprain of left foot, initial encounter; W10.8XXA Fall (on) (from) other stairs and steps, initial encounter; Y93.01 Activity, walking, marching and hiking; Y92.019 Unspecified place in single-family (private) house as the place of occurrence of the external cause
CPT/HCPCS: 99212; G0463